=== PATIENT | male | born 1965 | race Caucasian/White ===

== ENCOUNTER → 2018-01-04 14:48 | Outpatient (CLI) | payer MEDICAID, SELFPAY ==
--- NOTE | 2018-01-04 14:53 | XR_ITS ---
EXAM: XR lumbar spine min 4V HISTORY: ITS.REASON: ACUTE RIGHT SIDED LOW BACK PAIN WO SCIATICA ORDERING PHYSICIAN: Gila Ruggiero PATIENT AGE: 52 years COMPARISON: None FINDINGS: Normal alignment. No fracture or dislocation. No lytic or blastic change. There is mild degenerative disc disease at L3-L4 and L4-L5. Small endplate osteophytes are present at L4-L5. There is mild sclerosis of left SI joint inferiorly. IMPRESSION: Mild degenerative changes lumbar spine with no acute finding
== END ==
PROVIDERS: PCP Nurse Practitioner Family; Visit Provider Nurse Practitioner Family
DX: M54.5 Low back pain (principal)
CPT/HCPCS: 72110

== ENCOUNTER 2018-06-29 14:48 | Emergency (ER) | payer MEDICAID, SELFPAY ==
[2018-06-29 14:55] VITALS: BP 154/83; PULSE 88; RESP 18; TEMP 36.6; O2SAT 99; BMI 25.8
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
--- NOTE | 2018-06-29 15:07 | XR_ITS ---
XR hand LT min 3V HISTORY: Left hand pain ITS.REASON: hand injury ORDERING PHYSICIAN: Jose Domingo MD PATIENT AGE: 52 years COMPARISON: Left hand 03/03/2015 FINDINGS: No fracture or dislocation. No lytic or blastic change. There is mild deformity of the head of the fifth metacarpal secondary to old healed fracture. There is mild generalized soft tissue swelling especially in the web space between the thumb and index finger. There are no soft tissue foreign bodies. There is mild narrowing of the first carpometacarpal joint.. There are no foreign bodies. IMPRESSION: Mild generalized soft tissue swelling, mild osteoarthritic changes base of thumb
--- NOTE | 2018-06-29 15:09 | PC.NURSE ---
DAXA ARREDONDO at
[2018-06-29 15:19] VITALS: BP 164/93; PULSE 77; O2SAT 100
[2018-06-29 15:30] VITALS: PULSE 77; O2SAT 100
[2018-06-29 16:23] VITALS: BP 132/66; PULSE 80; RESP 18; TEMP 36.6; O2SAT 100
== END 2018-06-29 16:25 | disposition home or self-care (01) ==
PROVIDERS: Emergency Provider Emergency Medicine
DX: S63.92XA Sprain of unspecified part of left wrist and hand, initial encounter (principal); X50.1XXA Overexertion from prolonged static or awkward postures, initial encounter; Y92.73 Farm field as the place of occurrence of the external cause
CPT/HCPCS: 29125; 73130; 96372; 99284

== ENCOUNTER 2020-02-10 16:22 | Emergency (ER) | payer MEDICAID, SELFPAY ==
[2020-02-10 16:22] VITALS: BP 162/94; PULSE 86; RESP 16; TEMP 36.6; O2SAT 98; BMI 25.0
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
[2020-02-10 17:04] VITALS: BP 131/97; PULSE 78; RESP 78; TEMP 36.6; O2SAT 95
[2020-02-13 13:42] LABS: POC Glucose,Bedside 145 (70-110)
== END 2020-02-10 17:09 ==
PROVIDERS: Emergency Provider Physician Assistant; PCP Nurse Practitioner Family
DX: T40.1X1A Poisoning by heroin, accidental (unintentional), initial encounter (principal); F12.10 Cannabis abuse, uncomplicated; F17.210 Nicotine dependence, cigarettes, uncomplicated
CPT/HCPCS: 82962; 99282

== ENCOUNTER 2020-04-24 09:49 | Emergency (ER) | payer MEDICAID, SELFPAY ==
[2020-04-24 10:00] VITALS: BP 143/76; PULSE 76; RESP 18; TEMP 36.6; O2SAT 98; BMI 25.7
--- NOTE | 2020-04-24 10:01 | XR_ITS ---
PROCEDURE: XR KNEE LT 3V CLINICAL INDICATION: pain COMPARISON: CR KNEE3R KNEE-3 VIEWS-RT from 01/12/2014 CR KNEE3R KNEE-3 VIEWS-RT from 09/26/2014 CR KNEE3R KNEE-3 VIEWS-RT from 03/19/2015 CR KNEE3R KNEE-3 VIEWS-RT from 07/02/2015 FINDINGS: No fracture or dislocation. No lytic or blastic change. There is normal mineralization. Mild to moderate osteoarthritic changes are present at the medial compartment with mild osteoarthritis of the lateral compartment and patellofemoral joint. There is increased density in the suprapatellar region consistent with knee joint effusion. Other findings:None. IMPRESSION: Osteoarthritis with knee joint effusion Dictated by: Murali Diaz MD 04/24/2020 10:29 Murali Diaz MD in [place] 04/24/2020 10:29
--- NOTE | 2020-04-24 10:16 | HMH.EDUTC ---
[facility] [place] Clinical Impression: Knee pain Qualifiers: Chronicity: unspecified Laterality: left Qualified Code(s): M25.562 - Pain in left knee Disposition: Home, Self-Care Condition on Discharge: Good Instructions: How to Use Crutches, How To Perform RICE (Rest, Ice, Compress, Elevate), How to Use a Knee Immobilizer Additional Instructions: *weight bearing as tolerated Use Crutches to ambulate and walk *RICE, Rest the extremity, Ice 15-20 minutes 3-4 times daily, Compress- wear the larry wrap as discussed as much as possible to help reduce swelling and pain, Elevate the extremity when at rest *Larry wrap/Knee immobilizer is for support and help control swelling, use it except in the shower. Be sure that is not to tight but not to loose either *Elevate when resting *Etodolac every 8 hours as needed for pain an inflammation. If need something more can take Tylenol in between doses of Etodolac to help Immediately follow up with your family doctor for new or worsening of symptoms, or no noticeable improvement over the next 3-5 days Prescriptions: Etodolac [Etodolac 200mg Cap*] 200 mg PO Q8H PRN #15 cap PRN Reason: Moderate Pain Transmission Status: Received by [facility] Referrals: Jackson Duque MD [Primary Care Provider] - As needed Elida Caldwell MD [Physician] - 05/01/20 3:00 pm Time of Disposition: 11:07 Medical Decision Making - Talon Inquiry Pt receiving controlled substance: No Talon was queried for this patient: No Vital Signs: 04/24/20 10:00 04/24/20 11:13 Temperature 97.8 F 98.1 F Temperature Source Tympanic Pulse Rate 76 Pulse Rate [Right] 76 Respiratory Rate 18 16 Blood Pressure 132/87 Blood Pressure [Right Arm] 143/76 H Blood Pressure Mean [Right Arm] 98 Blood Pressure Source [Right Arm] Automatic Cuff Blood Pressure Position [Right Arm] Sitting 02 Sat by Pulse Oximetry 98 Oxygen Delivery Method Room Air - Lab Data Lab results reviewed: Yes: I reviewed the patient's lab results. Lab Results 04/24/20 10:23: Uric Acid 4.2 Orders (Tests/Meds): ED MEDICATIONS Discontinued Medications Generic Name Dose Route Start Last Admin Trade Name Freq PRN Reason Stop Dose Admin Ketorolac Tromethamine 60 mg 04/24/20 10:20 04/24/20 10:29 Ketorolac 60mg/2ml Vial IM 04/24/20 10:21 60 mg ONCE ONE Administration - Radiology Data #1 Image(s): Knee Image Reviewed: Yes I reviewed the patient's radiology image Preliminary Findings: No Fracture Seen - Physician Consults Physician Consulted: Javi Time: 11:00 Reason -: Orthopedic Eval/Care Comment/Response: Spoke with Kennedi at Dr Caldwell office and she spoke with Dr Caldwell about xray and findings recommended knee immobilizer continue with crutches and follow up in the office on May 01 at 1500 [facility] [place] - General Stated complaint: left knee won't bend Time Seen by Provider: 04/24/20 10:05 Mode of Arrival: Ambulatory Source of Information: Patient Limitations: No Limitations Description of Symptoms (Recalled from Triage Doc. by RN): left knee pain for three days. states he is unable to bend it and has had previous orthoscopic surgeries. HEENT Symptoms (Recalled from RN notes): No Resp Symptoms (Recalled from RN notes): No Skin Symptoms (Recalled from RN notes): No MS Symptoms (Recalled from RN notes): Yes (left knee pain and stiffness) Functional Status (Recalled from RN notes): na - History of Present Illness Provider Complaint: Patient states that he has had knee problems for years and have several surgerys on his knees States that he woke up and felt burning like pain in his left knee States that he walked to the bathroom and went back to bed States that when he woke up he was still having pain in that left knee and hurt when he would walk on it and painful when he would try to straighten it out denies known injury - Related Data Home Medications Medication Instructions Recorded Queenie
[2020-04-24 10:44] LABS: Uric Acid 4.2 mg/dl (3.5-8.5)
[2020-04-24 11:13] VITALS: BP 132/87; PULSE 76; RESP 16; TEMP 36.7
== END 2020-04-24 11:13 | disposition home or self-care (01) ==
PROVIDERS: Emergency Provider Nurse Practitioner; PCP Family Medicine
DX: M25.562 Pain in left knee (principal); F17.210 Nicotine dependence, cigarettes, uncomplicated
CPT/HCPCS: 73562; 84550; 96372; 99202; G0463

== ENCOUNTER → 2020-05-25 13:09 | Outpatient (CLI) | payer MEDICAID, SELFPAY ==
--- NOTE | 2020-05-25 13:16 | XR_ITS ---
PROCEDURE: XR KNEE LT 3V CLINICAL INDICATION: Left knee pain COMPARISON: CR KNEE3R KNEE-3 VIEWS-RT from 09/26/2014 CR KNEE3R KNEE-3 VIEWS-RT from 03/19/2015 CR KNEE3R KNEE-3 VIEWS-RT from 07/02/2015 CR XR KNEE LT 3V from 04/24/2020 FINDINGS: No fracture or dislocation. No lytic or blastic change. There is normal mineralization. Tricompartmental osteoarthritic changes are present. Small suprapatellar effusion Other findings:None. IMPRESSION: Osteoarthritis with knee joint effusion Dictated by: Murali Diaz MD 05/25/2020 14:11 Murali Diaz MD in [place] 05/25/2020 14:11
--- NOTE | 2020-05-25 14:41 | CA_ITS ---
APPROVED REPORT Left Lower Extremity Venous Study for DVT. Public Relations Director: TRACY Indications Lower Extremity Pain: Left Current Smoker left leg pain x 3 weeks. Patient states pain is in the knee region. Denies trauma. Diabetes, HTN. Risk Factors Current Smoker Vein Imaging CFV (L): compressive, spontaneous, phasic, augmentation FEM (L): compressive, spontaneous, phasic, augmentation POP (L): compressive, spontaneous, phasic, augmentation PTV (L): Compressible GSV (L): compressive, spontaneous, phasic, augmentation Peroneals (L):Compressible GAS (L): Compressible Findings No evidence of DVT or superficial thrombophlebitis in the veins scanned of the left lower extremity. Conclusion No evidence of DVT or superficial thrombophlebitis in the veins scanned of the left lower extremity. Critical Notification Critical Value: No Physician Notified Date: 05/25/2020 Time: 15:09 Physician Name: Dr. Caldwell Report Read Back Electronically signed by : Murali Diaz MD 05/25/2020 15:20:55
== END ==
PROVIDERS: PCP Nurse Practitioner Family; Visit Provider Orthopaedic Surgery
DX: M79.605 Pain in left leg (principal); M25.562 Pain in left knee
CPT/HCPCS: 73562; 93971

== ENCOUNTER → 2020-06-11 09:55 | Outpatient (CLI) | payer MEDICAID, SELFPAY ==
[2020-06-11 09:55] LABS: Blood Urea Nitrogen 16 mg/dl (9-20); Estimated Glomerular Filt Rate 101 ml/min (>60); GFR (African American) 122 ML/MIN (>60)
--- NOTE | 2020-06-11 09:55 | MR_ITS ---
PROCEDURE: MR KNEE LT WO/W CON CLINICAL INDICATION: Left knee pain COMPARISON: No exams were available for comparison TECHNIQUE: Routine multiplanar multi echo sequences are performed without gadolinium enhancement. FINDINGS: Images are degraded due to motion artifact. Extensive signal abnormality of the medial and lateral menisci, may represent complex tears versus postsurgical changes. Extensive signal abnormality noted in the ACL, may represent high-grade sprain. The PCL is intact. The MCL and lateral collateral ligament complex are unremarkable. Minor susceptibility signal loss is noted in the intercondylar notch which may be secondary to prior surgery. There is grade 3 and 4 cartilage loss noted in the medial, lateral and patellofemoral compartments. Postsurgical changes are noted at the lateral patellar retinaculum. Otherwise the extensor mechanism is within normal limits. The popliteal tendon and the posterolateral corner structures are unremarkable. Large joint effusion is noted. Minor bone current edema is noted at the insertion of the posterior cruciate ligament. Incidental note is made of fabella. IMPRESSION: Images are significantly degraded due to motion artifact. Signal abnormality in the medial and lateral menisci which may represent postsurgical changes versus complex tears. Partial tear versus sprain of the ACL. Tricompartmental grade 3 and 4 cartilage loss. Moderate joint effusion. Dictated by: Roxy Fletcher 06/11/2020 16:07 Roxy Fletcher in [place] 06/11/2020 16:07
== END ==
PROVIDERS: PCP Nurse Practitioner Family; Visit Provider Orthopaedic Surgery
DX: M25.562 Pain in left knee (principal); E11.9 Type 2 diabetes mellitus without complications
CPT/HCPCS: 36415; 73723; 82565; 84520; A9576

== ENCOUNTER 2020-09-14 13:25 | Emergency (ER) | payer MEDICAID, SELFPAY ==
[2020-09-14] VITALS (10 sets, daily range): BP systolic 113–133; BP diastolic 69–89; PULSE 57–85; RESP 16–18; TEMP 36.8–36.9; O2SAT 97–100; BMI 24.6
--- NOTE | 2020-09-14 13:37 | PC.NURSE ---
notified ER MD of presenting s/s. ER MD states not to stroke alert, pt states she wants to assess pt first.
--- NOTE | 2020-09-14 13:42 | PC.NURSE ---
DAXA ARREDONDO at
--- NOTE | 2020-09-14 13:42 | PC.NURSE ---
notified rad of CT head order
--- NOTE | 2020-09-14 13:47 | CT_ITS ---
Procedure: CT ANGIO HEAD CLINICAL HISTORY: please perform a CTV for double vision Double vision COMPARISON: CT CT HEAD/BRAIN WO CON from 09/14/2020 TECHNIQUE: IV Contrast: 100ml Isovue 370 Axial images obtained with sagittal and coronal reformats. All CT scans at the facility use one or more dose reduction, viz: automated exposure control, ma/kV adjustment per patient size (including targeted exams where dose is matched to indication, i.e. head), or iterative reconstruction technique. FINDINGS: CTA of the brain with delayed images performed There is a small aneurysm projecting off of the posterior at the lateral aspect of the cavernous portion of the right internal carotid artery measuring approximately 2 mm. Persistent origin noted of the left posterior cerebral artery. No intracranial occlusive process or arteriovenous malformation. No evidence dural thrombosis. No enhancing lesions are evident. Artifact is noted from the patient's earring on the left. There is some minimal calcific plaque of the internal carotids within the cavernous sinus on both sides IMPRESSION: 1. No evidence of dural sinus thrombosis. 2. 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 Dictated by: Murali Diaz MD 09/14/2020 14:50 Murali Diaz MD in [place] 09/14/2020 14:50
--- NOTE | 2020-09-14 13:50 | HMH.EDGENADL ---
ED Disposition Clinical Impression: Vertical diplopia Disposition: Xfer Short-Term Hosp Condition on Discharge: Good Referrals: Gila Ruggiero APRN [Primary Care Provider] - - Critical Care Critical Care Time: No Attestation: On 09/14/20, the high probability of a clinically significant, sudden or life threatening deterioration of the following system(s) required my full and direct attention, intervention and personal management. The time I documented below is in addition to time spent performing reported procedures but includes the following listed in this critical care notation. Medical Decision Making - Medical Records Medical records reviewed: Yes: I reviewed the patient's medical records. - Talon Inquiry Pt receiving controlled substance: No Vital Signs: 09/14/20 13:34 09/14/20 13:36 09/14/20 13:50 Temperature 98.4 F Temperature Source Oral Pulse Rate 85 75 Pulse Rate [Right Radial] 81 Respiratory Rate 18 Blood Pressure 132/86 116/84 Blood Pressure [Right Arm] 132/86 Blood Pressure Mean 103 99 Blood Pressure Mean [Right Arm] 101 Blood Pressure Source [Right Arm] Automatic Cuff Blood Pressure Position [Right Arm] Sitting 02 Sat by Pulse Oximetry 99 98 99 Oxygen Delivery Method Room Air 09/14/20 14:47 Temperature Temperature Source Pulse Rate 64 Pulse Rate [Right Radial] Respiratory Rate Blood Pressure 128/80 Blood Pressure [Right Arm] Blood Pressure Mean 97 Blood Pressure Mean [Right Arm] Blood Pressure Source [Right Arm] Blood Pressure Position [Right Arm] 02 Sat by Pulse Oximetry 99 Oxygen Delivery Method - Lab Data Lab results reviewed: Yes: I reviewed the patient's lab results. Lab Results 09/14/20 13:55: WBC 7.6, RBC 5.64, Hgb 15.8, Hct 47.4, MCV 83.9, MCH 27.9, MCHC 33.3, RDW 13.1, Plt Count 143, MPV 9.3, Neut % (Auto) 59.7, Lymph % (Auto) 32.5, Hardy % (Auto) 5.7, Eos % (Auto) 1.6, Baso % (Auto) 0.4, Neut # (Auto) 4.5, Lymph # (Auto) 2.5, Hardy # (Auto) 0.4, Eos # (Auto) 0.1, Baso # (Auto) 0.0 09/14/20 13:55: Sodium 143, Potassium 3.5, Chloride 104, Carbon Dioxide 28, Anion Gap 14.5, BUN 14, Creatinine 0.70, Estimated Creat Clear 145, Estimated GFR 118, Est GFR ( Amer) 142, Glucose 125 H, Calcium 9.8, Total Bilirubin 0.9, AST 30, ALT 18, Alkaline Phosphatase 126, Total Protein 8.8 H, Albumin 4.9, Globulin 3.9 H, Albumin/Globulin Ratio 1.3 Result diagrams: 09/14/20 13:55 09/14/20 13:55 Orders (Tests/Meds): ED MEDICATIONS Discontinued Medications Generic Name Dose Route Start Last Admin Trade Name Freq PRN Reason Stop Dose Admin Iopamidol 100 ml 09/14/20 14:15 09/14/20 14:16 Iopamidol-370 (76%);100ml Bottle IV 09/14/20 14:16 100 ml ONCE ONE Administration Sodium Chloride 50 ml 09/14/20 14:15 09/14/20 14:15 0.9 % Sodium Chloride 50 Ml Vial IV 09/14/20 14:16 50 ml ONCE ONE Administration Sodium Chloride 10 ml 09/14/20 14:15 09/14/20 14:16 Sodium Chloride 0.9% 10ml Syr (Rad Only) IV 09/14/20 14:16 10 ml ONCE ONE Administration ORDERS Category Date Time Status Blood Culture Stat Micro 09/14/20 13:55 Received Medical Decision Narrative: Presents with isolated double vision. No other symptoms to suggest stroke. He is out of the window so was not stroke alerted. Will perform CT head to evaluate for stroke and also CTV to evaluate for central venous sinus thrombosis. No evidence of orbital or periorbital cellulitis, eye trauma, anterior chamber and conjunctive are clear. Labs unremarkable. CT head with likely incidental 2 mm internal carotid aneurysm. Persistent concern for stroke, case was discussed with Dr. Nancy WEI who accepts the patient for further stroke evaluation. General Adult HPI - General Stated complaint: double vision Time Seen by Provider: 09/14/20 13:45 - History of Present Illness HPI narrative: 5-year-old male with history of active IV drug abuse, last us
--- NOTE | 2020-09-14 13:54 | PC.NURSE ---
Pt to rad
--- NOTE | 2020-09-14 14:02 | CT_ITS ---
PROCEDURE: CT HEAD/BRAIN WO CON CLINICAL INDICATION: double vision COMPARISON: CT HEADWO CT head/brain wo con from 06/16/2018 TECHNIQUE: Axial images obtained. All CT scans at the facility use one or more dose reduction, viz: automated exposure control, ma/kV adjustment per patient size (including targeted exams where dose is matched to indication, i.e. head), or iterative reconstruction technique. FINDINGS: No midline shift, mass effect, intracranial hemorrhage, hydrocephalus, or extra-axial fluid collection is evident. The calvarium has an unremarkable appearance. No mastoid effusion. No sinus air-fluid level. IMPRESSION: No acute intracranial finding Dictated by: Murali Diaz MD 09/14/2020 14:38 Murali Diaz MD in [place] 09/14/2020 14:38
[2020-09-14 14:11] LABS: Basophils % 0.4 % (0.1-2.0); Eosinophils # 0.1 K/mm3 (0.0-0.4); Eosinophils % 1.6 % (0.1-12.0); Hematocrit 47.4 % (42.0-52.0); Hemoglobin 15.8 g/dL (14.1-18.0); Lymphocytes # 2.5 K/mm3 (0.7-4.5); Lymphocytes % 32.5 % (10-50); Mean Corpuscular HGB Conc 33.3 g/dL (31.8-35.4); Mean Corpuscular Hemoglobin 27.9 pg (27.0-31.2); Mean Corpuscular Volume 83.9 fl (80-94); Mean Platelet Volume 9.3 fl (7.4-10.4); Monocytes # 0.4 K/mm3 (0.1-1.0); Monocytes % 5.7 % (1.7-9.3); Neutrophils # 4.5 K/mm3 (1.8-7.8); Neutrophils % 59.7 % (37.0-80.0); Platelet Count 143 K/mm3 (142-424); Red Blood Count 5.64 M/mm3 (4.60-6.20); Red Cell Distribution Width 13.1 % (11.5-17.5); White Blood Count 7.6 K/mm3 (4.8-10.8)
[2020-09-14 14:20] LABS: Chloride 104 mmol/L (98-107); Potassium 3.5 mmoL/L (3.5-5.1); Sodium 143 mmol/L (136-145)
[2020-09-14 14:23] LABS: Alanine Aminotransferase 18 U/L (12-78); Albumin Level 4.9 g/dl (3.5-5.0); Albumin/Globulin Ratio 1.3 (1.1-1.8); Alkaline Phosphatase 126 U/L (38-126); Anion Gap 14.5 mEq/L (5-15); Aspartate Amino Transferase 30 U/L (17-59); Bilirubin,Total 0.9 mg/dl (0.2-1.3); Blood Urea Nitrogen 14 mg/dl (9-20); Carbon Dioxide 28 mmol/L (22.0-30.0); Creatinine Clearance Estimated 145 mL/min (50-200); Estimated Glomerular Filt Rate 118 ml/min (>60); GFR (African American) 142 ML/MIN (>60); Globulin 3.9 g/dL (1.3-3.2); Total Protein,Serum 8.8 g/dl (6.3-8.2)
[2020-09-14 14:24] LABS: Calcium 9.8 mg/dl (8.4-10.2); Glucose 125 mg/dl (74-100)
--- NOTE | 2020-09-14 14:48 | PC.NURSE ---
PATIENT HAS 20/40 VISION IN BOTH EYES. PATIENT UNSURE IF THAT IS HIS NORMAL VISION. PT REPORTS HE WEARS NON-PRESCRIPTION GLASSES TO READ
--- NOTE | 2020-09-14 15:17 | PC.NURSE ---
contacting [facility] per er request
--- NOTE | 2020-09-14 15:18 | PC.NURSE ---
DAXA ARREDONDO speaking Dr. Erwin at with stroke team
--- NOTE | 2020-09-14 15:36 | PC.NURSE ---
pt accepted to ER per Dr. Ornelas
--- NOTE | 2020-09-14 15:52 | PC.NURSE ---
notified [facility] of transport to ER, pt can by [facility] transport. [facility] staff states they do not have a transport truck today. States they will transport pt after the als run they were just notified of is complete.
--- NOTE | 2020-09-14 16:51 | PC.NURSE ---
ER PHYSICIAN APPROVED PATIENT TO EAT. DIETARY CALLED AND ORDERED A FOOD TRAY AT THIS TIME
--- NOTE | 2020-09-14 17:32 | PC.NURSE ---
GAVE REPORT TO REBECCA ARCINIEGASERVOMECHANISM DESIGNER NURSE AT THIS TIME
== END 2020-09-14 18:40 | disposition short-term general hospital (02) ==
PROVIDERS: Emergency Provider Emergency Medicine; PCP Nurse Practitioner Family
DX: H53.2 Diplopia (principal); F17.210 Nicotine dependence, cigarettes, uncomplicated; R73.9 Hyperglycemia, unspecified
CPT/HCPCS: 70450; 70496; 80053; 85025; 87040; 99283; 99284; Q9967

== ENCOUNTER 2020-10-21 17:41 | Emergency (ER) | payer MEDICAID, SELFPAY ==
[2020-10-21 17:45] VITALS: BP 119/99; PULSE 82; RESP 18; TEMP 36.7; O2SAT 97; BMI 25.7
--- NOTE | 2020-10-21 17:54 | HMH.EDGENADL ---
ED Disposition Clinical Impression: Knee contusion Disposition: Home, Self-Care Condition on Discharge: Good Additional Instructions: Keep knee immobilizer for 7 days. Follow-up with your primary care physician. Follow-up with the orthopedic clinic. Avoid prolonged walking and standing. Prescriptions: Etodolac [Lodine 400mg Tab] 400 mg PO TID 10 Days #30 tab Transmission Status: Pending to [facility] Referrals: Gila Ruggiero APRN [Primary Care Provider] - - Critical Care Critical Care Time: No Attestation: On 10/21/20, the high probability of a clinically significant, sudden or life threatening deterioration of the following system(s) required my full and direct attention, intervention and personal management. The time I documented below is in addition to time spent performing reported procedures but includes the following listed in this critical care notation. Medical Decision Making - Medical Records MR Comment: Left knee shows signs of degenerative joint disease mild effusion. No fracture or dislocation - Talon Inquiry Pt receiving controlled substance: No Talon was queried for this patient: No Vital Signs: 10/21/20 17:45 Temperature 98.0 F Temperature Source Oral Pulse Rate [Right] 82 Respiratory Rate 18 Blood Pressure [Right Arm] 119/99 H Blood Pressure Mean [Right Arm] 105 02 Sat by Pulse Oximetry 97 Oxygen Delivery Method Room Air Orders (Tests/Meds): ED MEDICATIONS Discontinued Medications Generic Name Dose Route Start Last Admin Trade Name Duyq PRN Reason Stop Dose Admin Ketorolac Tromethamine 30 mg 10/21/20 17:59 10/21/20 18:05 Ketorolac 30mg/Ml Vial IM 10/21/20 18:00 30 mg ONCE ONE Administration ORDERS Category Date Time Status XR knee LT 3V Stat Exams 10/21/20 17:59 Taken General Adult HPI - General Stated complaint: AO [id number], 1700 fell injured left knee Time Seen by Provider: 10/21/20 17:54 Mode of Arrival: Ambulatory Source of Information: Patient Limitations: No Limitations - History of Present Illness HPI narrative: Patient is 55-year old male with a long history of pain in the left knee and on schedule to have total knee replacement. Patient has a chronic pain in both knees. He fell today several steps and injured his left knee. No other injuries. No bruises noted. He has a chronic effusion of the left knee. He was seen by the orthopedic doctor and he was scheduled to have surgery for total knee replacement. He walked to the emergency room with pain in the left knee after this fall. Onset (ago): hour(s) Location: lower extremity Radiation: non-radiation Severity scale (1-10): 3 Quality: sharp Consistency: constant Relieving factors: immobilization Exacerbating factors: movement Associated symptoms: denies other symptoms - Related Data Home Medications Medication Instructions Recorded Confirmed cloNIDine HCL [cloNIDine 0.1mg 0.1 mg PO HS 10/16/17 06/22/20 Tablet] hydroCHLOROthiazide [HCTZ 25mg 25 mg PO BID 10/16/17 06/22/20 tab] Previous Rx's Medication Instructions Recorded Etodolac [Etodolac 200mg Cap*] 200 mg PO Q8H PRN #15 cap 04/24/20 Etodolac [Lodine 400mg Tab] 400 mg PO TID 10 Days #30 tab 10/21/20 Allergies Allergy/AdvReac Type Severity Reaction Status Date / Time No Known Allergies Allergy Verified 06/22/20 09:51 [facility] History - Hepatitis A Screen Attestation statement:: This patient has been screened for Hepatitis A risk factors. Medical History: Denies:: Cancer, Diabetes Mellitus Type 1, Diabetes Mellitus Type 2, MRSA Amputation: No - Social History Smoking Status: Current every day smoker Tobacco Type: cigarettes # Packs/Day (cigarettes): 1 Alcohol Intake: never Alcohol Intake Frequency:: other Substance Use Type: heroin Occupational Status: employed ROS Obtained: Yes All systems reviewed & no additional complaints - Constitutional Constitutional:
[2020-10-21 17:58] VITALS: BMI 25.7
--- NOTE | 2020-10-21 17:59 | XR_ITS ---
PROCEDURE INFORMATION: Exam: XR Left Knee Exam date and time: 10/21/2020 5:59 PM Age: 55 years old Clinical indication: Injury or trauma; Blunt trauma; Injury date: 10/21/2020; Patient HX: Fall, left knee pain; Additional info: Left knee injury TECHNIQUE: Imaging protocol: XR Left knee. Views: 3 views. COMPARISON: MR KNEE LT WO/W CON 06/11/2020 10:22 AM FINDINGS: Bones/joints: Tricompartmental joint space narrowing and osteophyte formation. No acute fracture or dislocation. Soft tissues: Normal. IMPRESSION: No acute findings.
[2020-10-21 19:00] VITALS: BP 112/55; PULSE 85; RESP 18; TEMP 36.8; O2SAT 99
== END 2020-10-21 19:05 | disposition home or self-care (01) ==
PROVIDERS: Emergency Provider Internal Medicine; PCP Nurse Practitioner Family
DX: S80.02XA Contusion of left knee, initial encounter (principal); W10.9XXA Fall (on) (from) unspecified stairs and steps, initial encounter; Y92.89 Other specified places as the place of occurrence of the external cause; F17.210 Nicotine dependence, cigarettes, uncomplicated
CPT/HCPCS: 73562; 99282

== ENCOUNTER → 2021-06-21 16:03 | Outpatient (CLI) | payer OTHER, SELFPAY ==
[2021-06-21 17:26] LABS: Free T4 (Free Thyroxine) 3.09 ng/dl (0.78-2.19)
[2021-06-21 17:40] LABS: Thyroid Stimulating Hormone 0.04 uIU/mL (0.465-4.68)
[2021-06-23 08:38] LABS: Thyroid Peroxidase Antibodies 15 IU/mL (0-34); Triiodothyronine (T3) Free 9.1 pg/mL (2.0-4.4)
[2021-06-23 22:08] LABS: Thyroglobulin Level <1.0 IU/mL (0.0-0.9)
== END ==
PROVIDERS: Visit Provider Nurse Practitioner Family
DX: E05.00 Thyrotoxicosis with diffuse goiter without thyrotoxic crisis or storm (principal)
CPT/HCPCS: 36415; 84439; 84443; 84481; 86376; 86800

== ENCOUNTER → 2021-06-30 08:48 | Outpatient (CLI) | payer OTHER, SELFPAY ==
[2021-06-30 09:47] LABS: Basophils # 0.1 K/mm3 (0-0.2); Basophils % 0.9 % (0.1-2.0); Eosinophils # 0.2 K/mm3 (0.0-0.4); Eosinophils % 2.7 % (0.1-12.0); Hematocrit 44.6 % (42.0-52.0); Hemoglobin 14.2 g/dL (14.1-18.0); Lymphocytes # 1.5 K/mm3 (0.7-4.5); Lymphocytes % 25.9 % (10-50); Mean Corpuscular HGB Conc 31.9 g/dL (31.8-35.4); Mean Corpuscular Hemoglobin 27.6 pg (27.0-31.2); Mean Corpuscular Volume 86.4 fl (80-94); Monocytes # 0.4 K/mm3 (0.1-1.0); Monocytes % 6.2 % (1.7-9.3); Neutrophils # 3.7 K/mm3 (1.8-7.8); Neutrophils % 64.2 % (37.0-80.0); Platelet Count 182 K/mm3 (142-424); Red Blood Count 5.17 M/mm3 (4.60-6.20); White Blood Count 5.8 K/mm3 (4.8-10.8)
[2021-06-30 10:09] LABS: Chloride 108 mmol/L (98-107); Potassium 4.3 mmoL/L (3.5-5.1); Sodium 141 mmol/L (136-145)
[2021-06-30 10:11] LABS: Alanine Aminotransferase 12 U/L (12-78); Aspartate Amino Transferase 24 U/L (17-59); Blood Urea Nitrogen 13 mg/dl (9-20); Estimated Glomerular Filt Rate 118 ml/min (>60); GFR (African American) 142 ML/MIN (>60)
[2021-06-30 10:12] LABS: Albumin Level 4.3 g/dl (3.5-5.0); Albumin/Globulin Ratio 1.4 (1.1-1.8); Alkaline Phosphatase 134 U/L (38-126); Anion Gap 10.3 mEq/L (5-15); Bilirubin,Total 0.5 mg/dl (0.2-1.3); Calcium 9.4 mg/dl (8.4-10.2); Carbon Dioxide 27 mmol/L (22.0-30.0); Globulin 3.1 g/dL (1.3-3.2); Glucose 107 mg/dl (74-100); Total Protein,Serum 7.4 g/dl (6.3-8.2)
[2021-06-30 10:21] LABS: Erythrocyte Sedimentation Rate 11 mm/hr (0-20)
== END ==
PROVIDERS: Visit Provider Nurse Practitioner Family
DX: I10 Essential (primary) hypertension (principal); H53.2 Diplopia; H57.12 Ocular pain, left eye
CPT/HCPCS: 36415; 80053; 85025; 85651

== ENCOUNTER → 2021-07-09 10:18 | Outpatient (CLI) | payer OTHER, SELFPAY ==
--- NOTE | 2021-07-09 10:24 | MR_ITS ---
FINAL REPORT CLINICAL HISTORY: DOUBLE VISION, LT EYE PAIN FINDINGS: Multiple projection images of the brain arterial vasculature were obtained without contrast. The raw data images were also reviewed. No segmental stenosis is identified. There is no evidence of major branch occlusion. No aneurysm or vascular malformation is identified. There is a patent posterior communicating artery on the left. IMPRESSION: Unremarkable MR angiogram of the head. Reviewed, Interpreted and Dictated by Jimmy Rosado MD Transcribed by Gracia Pritchett Authenticated by Jimmy Rosado MD on 07/09/2021 03:18:35 PM [facility]
== END ==
PROVIDERS: PCP Nurse Practitioner Family; Visit Provider Nurse Practitioner Family
DX: H53.2 Diplopia (principal); H57.12 Ocular pain, left eye
CPT/HCPCS: 70544

== ENCOUNTER 2021-09-13 00:02 | Emergency (ER) | payer OTHER, SELFPAY ==
[2021-09-13] VITALS: BP 192/115; PULSE 86; RESP 18; TEMP 36.5; O2SAT 99; BMI 23.7
[2021-09-13 00:05] VITALS: BMI 23.7
--- NOTE | 2021-09-13 00:06 | XR_ITS ---
PROCEDURE INFORMATION: Exam: XR Chest Exam date and time: 09/13/2021 12:59 AM Age: 56 years old Clinical indication: Shortness of breath and other: Overdose TECHNIQUE: Imaging protocol: Radiologic exam of the chest. Views: 1 view. COMPARISON: CR CXR2V XR chest 2V 10/16/2017 8:43 AM FINDINGS: Lungs: Unremarkable. No consolidation. Pleural spaces: Unremarkable. No pleural effusion. No pneumothorax. Heart/Mediastinum: Unremarkable. No cardiomegaly. Bones/joints: Unremarkable. IMPRESSION: No acute findings.
[2021-09-13 00:30] VITALS: BP 158/99; PULSE 84; O2SAT 94
[2021-09-13 00:31] LABS: Basophils # 0.1 K/mm3 (0-0.2); Basophils % 1.6 % (0.1-2.0); Eosinophils # 0.2 K/mm3 (0.0-0.4); Eosinophils % 4.1 % (0.1-12.0); Hematocrit 36.2 % (42.0-52.0); Hemoglobin 11.5 g/dL (14.1-18.0); Lymphocytes % 33.5 % (10-50); Mean Corpuscular HGB Conc 31.7 g/dL (31.8-35.4); Mean Corpuscular Hemoglobin 27.7 pg (27.0-31.2); Mean Corpuscular Volume 87.5 fl (80-94); Mean Platelet Volume 10.4 fl (7.4-10.4); Monocytes # 0.5 K/mm3 (0.1-1.0); Monocytes % 7.8 % (1.7-9.3); Neutrophils # 3.2 K/mm3 (1.8-7.8); Neutrophils % 53.1 % (37.0-80.0); Platelet Count 151 K/mm3 (142-424); Red Blood Count 4.14 M/mm3 (4.60-6.20); Red Cell Distribution Width 16.1 % (11.5-17.5); White Blood Count 5.9 K/mm3 (4.8-10.8)
[2021-09-13 00:33] LABS: Chloride 105 mmol/L (98-107); Potassium 3.7 mmoL/L (3.5-5.1); Sodium 139 mmol/L (136-145)
[2021-09-13 00:35] LABS: Alanine Aminotransferase 25 U/L (12-78); Alkaline Phosphatase 168 U/L (38-126); Aspartate Amino Transferase 41 U/L (17-59); Bilirubin,Total 0.6 mg/dl (0.2-1.3); Blood Urea Nitrogen 12 mg/dl (9-20); Creatinine Clearance Estimated 107 mL/min (50-200); Estimated Glomerular Filt Rate 88 ml/min (>60); GFR (African American) 106 ML/MIN (>60)
[2021-09-13 00:36] LABS: Albumin/Globulin Ratio 1.3 (1.1-1.8); Anion Gap 10.7 mEq/L (5-15); Calcium 8.8 mg/dl (8.4-10.2); Carbon Dioxide 27 mmol/L (22.0-30.0); Globulin 3.1 g/dL (1.3-3.2); Glucose 114 mg/dl (74-100); Total Protein,Serum 7.1 g/dl (6.3-8.2)
--- NOTE | 2021-09-13 00:40 | ECG_ITS ---
APPROVED REPORT Exam: Resting ECG HR:84 bpm ECG Measurements Heart Rate 84 AXES NM 166 P 73 QRSd 88 QRS 74 QT 369 T 72 QTc 410 Conclusion SINUS RHYTHM MINIMAL VOLTAGE CRITERIA FOR LVH, CONSIDER NORMAL VARIANT [MEETS CRITERIA IN ONE OF: R(aVL), S(V1), R(V5), R(V5/V6)+S(V1)] BORDERLINE ECG UNCONFIRMED REPORT Electronically signed by : Jackson Ceja MD 09/13/2021 21:28:16
[2021-09-13 00:42] LABS: Acetaminophen < 10 ug/ml (10-30); Ethyl Alcohol < 10 mg/dl (0-10); Salicylate < 1.0 mg/dL (2.0-20.0)
[2021-09-13 00:48] LABS: Troponin I < 0.01 ng/ml (0.00-0.034)
[2021-09-13 00:54] LABS: Microscopic, Urine URINE MICROSCOPIC (MICROSCOPIC)
[2021-09-13 00:55] LABS: Appearance,Urine CLEAR (Clear); Bilirubin,Urine Negative (Negative); Blood, Urine Negative (Negative); Color,Urine YELLOW (Yellow); Glucose,Urine (UA) Negative (Negative); Ketones,Urine Negative (Negative); Leukocyte Esterase,Urine Negative (Negative); Nitrate,Urine Negative (Negative); Protein,Urine TRACE (Negative); Specific Gravity, Urine 1.025 (1.005-1.030); Urobilinogen,Urine 0.2 EU/dl (0.2)
--- NOTE | 2021-09-13 00:55 | HMH.EDOD ---
ED Disposition Clinical Impression: Poisoning by opiate or related narcotic, IVDU (intravenous drug user), Cocaine abuse, Amphetamine abuse Disposition: Home, Self-Care Condition on Discharge: Good Instructions: DI for Drug Overdose in Adults Additional Instructions: please call pcp for follow up Referrals: Provider,Hortensia, [Primary Care Provider] - - Critical Care Critical Care Time: No Attestation: On 09/13/21, the high probability of a clinically significant, sudden or life threatening deterioration of the following system(s) required my full and direct attention, intervention and personal management. The time I documented below is in addition to time spent performing reported procedures but includes the following listed in this critical care notation. Medical Decision Making - Medical Records Medical records reviewed: Yes: I reviewed the patient's medical records. - Talon Inquiry Pt receiving controlled substance: No Vital Signs: 09/13/21 00:00 09/13/21 00:30 Temperature 97.7 F Temperature Source Oral Pulse Rate 84 Pulse Rate [Left Radial] 86 Respiratory Rate 18 Blood Pressure 158/99 H Blood Pressure [Right Arm] 192/115 H Blood Pressure Mean [Right Arm] 140 Blood Pressure Source [Right Arm] Automatic Cuff 02 Sat by Pulse Oximetry 99 94 L Oxygen Delivery Method Room Air Room Air - Lab Data Lab results reviewed: Yes: I reviewed the patient's lab results. Lab Results 09/13/21 00:20: WBC 5.9, RBC 4.14 L, Hgb 11.5 L, Hct 36.2 L, MCV 87.5, MCH 27.7, MCHC 31.7 L, RDW 16.1, Plt Count 151, MPV 10.4, Neut % (Auto) 53.1, Lymph % (Auto) 33.5, Sabine % (Auto) 7.8, Eos % (Auto) 4.1, Baso % (Auto) 1.6, Neut # (Auto) 3.2, Lymph # (Auto) 2.0, Sabine # (Auto) 0.5, Eos # (Auto) 0.2, Baso # (Auto) 0.1 09/13/21 00:20: Sodium 139, Potassium 3.7, Chloride 105, Carbon Dioxide 27, Anion Gap 10.7, BUN 12, Creatinine 0.90, Estimated Creat Clear 107, Estimated GFR 88, Est GFR ( Amer) 106, Glucose 114 H, Calcium 8.8, Total Bilirubin 0.6, AST 41, ALT 25, Alkaline Phosphatase 168 H, Troponin I < 0.01, Total Protein 7.1, Albumin 4.0, Globulin 3.1, Albumin/Globulin Ratio 1.3, Salicylates < 1.0 L, Acetaminophen < 10 L 09/13/21 00:20: Plasma/Serum Alcohol < 10 09/13/21 00:49: Urine Color Yellow, Urine Appearance Clear, Urine pH 6.0, Ur Specific Shoup 1.025, Urine Protein Trace, Urine Glucose (UA) Negative, Urine Ketones Negative, Urine Blood Negative, Urine Nitrate Negative, Urine Bilirubin Negative, Urine Urobilinogen 0.2, Ur Leukocyte Esterase Negative, Urine WBC 10-20, Ur Squamous Epith Cells Occasional 09/13/21 00:49: Urine Opiates Screen Negative, Urine Methadone Screen Negative, Ur Barbituates Screen Negative, Ur Phencyclidine Scrn Negative, Ur Amphetamines Screen Positive H, U Benzodiazepines Scrn Negative, Urine Cocaine Screen Positive H, U Marijuana (THC) Screen Positive H Result diagrams: 09/13/21 00:20 09/13/21 00:20 Orders (Tests/Meds): ORDERS Category Date Time Status Troponin I Q3H Lab 09/13/21 03:15 Ordered Troponin I Q3H Lab 09/13/21 06:15 Ordered Urine Culture Stat Micro 09/13/21 00:49 Received - Radiology Data #1 Image(s): Chest Image Reviewed: Yes I have reviewed radiologist's interpretation Preliminary Findings: Normal/NAD - ECG Data Tracing #1 Normal Sinus Rhythm: Yes Ischemic changes: non-specific ST-T wave changes Medical Decision Narrative: has ivdu and at baseline - will need to consider rehab - stable exam and labs Overdose HPI - General Chief Complaint: Overdose Stated Complaint: overdose Time Seen by Provider: 09/13/21 00:15 Mode of Arrival: EMS Source of Information: Patient, Relative, EMS, Medical Record Limitations: No Limitations Description of Symptoms (Recalled from ER Triage Doc. by RN): PT UNRESPONSIVE AT HOME WITH SNORING RESPIRATIONS. EMS REPORTS GIVING NARCAN 1 MG PRIOR TO ARRIVAL. PT REPORTS HE USED IV HEROINE AND MARIJUANA. PT REPOR
[2021-09-13 00:59] LABS: Squamous Epithelial Cell,Urine Occasional #/hpf (0-5)
--- NOTE | 2021-09-13 01:01 | PC.NURSE ---
RAD at BS
[2021-09-13 01:06] LABS: Barbiturates Screen,Urine Negative ng/ml (<200); Benzodiazepines Screen,Urine Negative ng/ml (<200)
[2021-09-13 01:07] LABS: Cannabinoid Screen,Urine Positive ng/ml (<50)
[2021-09-13 01:08] LABS: Cocaine Screen,Urine Positive ng/ml (<300)
[2021-09-13 01:09] LABS: Methadone Screen,Urine Negative ng/ml (<300); Opiate Screen,Urine Negative ng/ml (<300)
[2021-09-13 01:10] LABS: Phencyclidine Screen,Urine Negative ng/ml (<25)
[2021-09-13 01:20] LABS: Amphetamine/Metha Screen,Urine Positive ng/ml (<1000)
[2021-09-13 01:29] VITALS: BP 165/106; PULSE 82; RESP 22; TEMP 36.8; O2SAT 99
== END 2021-09-13 01:35 | disposition home or self-care (01) ==
PROVIDERS: Emergency Provider Emergency Medicine; PCP Nurse Practitioner Family
DX: T40.1X1A Poisoning by heroin, accidental (unintentional), initial encounter (principal); F15.129 Other stimulant abuse with intoxication, unspecified; F14.129 Cocaine abuse with intoxication, unspecified; F12.129 Cannabis abuse with intoxication, unspecified
CPT/HCPCS: 71045; 80053; 80305; 80329; 81001; 84484; 85025; 87086; 93005; 99283

== ENCOUNTER 2022-01-10 10:00 | Emergency (ER) | payer OTHER, SELFPAY ==
[2022-01-10 11:49] VITALS: BP 0/0; PULSE 0; RESP 0; TEMP -17.7; TEMP 0
== END 2022-01-10 11:50 | disposition left against medical advice (07) ==
LOC: UTC 10:05
PROVIDERS: Emergency Provider Nurse Practitioner Family; PCP Nurse Practitioner Family
DX: J02.9 Acute pharyngitis, unspecified (principal); H57.11 Ocular pain, right eye; M79.10 Myalgia, unspecified site; F17.210 Nicotine dependence, cigarettes, uncomplicated; Z53.21 Procedure and treatment not carried out due to patient leaving prior to being seen by health care provider

== ENCOUNTER 2022-02-09 14:05 | Emergency (ER) | payer OTHER, SELFPAY ==
--- NOTE | 2022-02-09 14:06 | XR_ITS ---
FINAL REPORT CLINICAL HISTORY: PT FELL X DAYS AGO, HX MULITPLE FX AND SX FINDINGS: RIGHT KNEE 3 views of the right knee were obtained. There is a marked healed fracture deformity of the proximal tibial metaphysis and metadiaphysis. Visualized joint spaces are normally aligned. There is mild narrowing of the medial and lateral compartments. There is a well corticated ossific density at the lateral joint margin measuring 1.6 cm. This is probably related to sequela of prior fracture. There is a small to moderate joint effusion. IMPRESSION: Old healed fracture deformity with no acute bony abnormality. Small to moderate joint effusion. Reviewed, Interpreted and Dictated by Jimmy Rosado MD Transcribed by Reyna Campos Authenticated and [facility]
[2022-02-09 15:10] VITALS: BP 140/87; PULSE 74; RESP 18; TEMP 36.6; O2SAT 96; BMI 25.0
--- NOTE | 2022-02-09 15:12 | EXP.UTC ---
Discharge Plan Disposition Patient Disposition: Home, Self-Care Condition: Good Prescriptions Prescriptions: No Action clonidine HCl 0.1 MG tablet 0.1 mg PO HS hydrochlorothiazide 25 MG tablet 25 mg PO BID Referrals Follow up/Referrals: Noel Cazares DO [Staff Physician] - See instructions (Call office for appointment) Gila Ruggiero APRN [Primary Care Provider] - See instructions Activity Restrictions/Add. Instructions Additional Instructions/Restrictions: *No weight bearing *RICE, Rest the extremity, Ice 15-20 minutes 3-4 times daily, Compress- wear the juan wrap as discussed as much as possible to help reduce swelling and pain, Elevate the extremity when at rest *Knee immobilizer is for support and help control swelling, use it except in the shower. Be sure that is not to tight but not to loose either *Elevate when resting? *Ibuprofen 600-800mg every 6-8 hours as needed for pain an inflammation. If need something more can take Tylenol in between doses of Ibuprofen to help Immediately follow up with your family doctor for new or worsening of symptoms, or no noticeable improvement over the next 3-5 days Clinical Impressions Clinical Impression: Knee sprain Qualifiers: Encounter type: initial encounter Involved ligament of knee: unspecified ligament Laterality: right Qualified Code(s): S83.91XA - Sprain of unspecified site of right knee, initial encounter Stand Alone Forms Stand Alone Forms: Work/School Release Instructions Patient Instructions: How to Use Crutches, How To Perform RICE (Rest, Ice, Compress, Elevate), How to Use a Knee Immobilizer Discharge ED Provider: Sujey Andrade [facility] [place] HPI General Stated complaint: [id number]@[email or web address]@1300 pain in Rt knee Time Seen by Provider: 02/09/22 15:12 History of Present Illness Provider Complaint: Patient states that sometimes his knee gives out from injury a couple years ago States that he was walking down the steps and his right knee give out on him and he fell and landed on the knee State that ever since he has been having pain in his knee and wanted to get it looked at Related Data Home Medications Medication Instructions Recorded Confirmed clonidine HCl 0.1 mg tablet 0.1 mg PO HS HTN 10/16/17 09/13/21 hydrochlorothiazide 25 mg tablet 25 mg PO BID HTN 10/16/17 09/13/21 Allergies Allergy/AdvReac Type Severity Reaction Status Date / Time No Known Allergies Allergy Verified 06/22/20 09:51 [facility] Disclaimer: The information contained in this section may have been updated after the patient was seen, as this information can be updated by other users. Medical History (Updated 02/09/22 @ 16:43 by Sujey Andrade APRN) Anxiety COPD (chronic obstructive pulmonary disease) Depression Hypertension Liver disease Migraine Surgical History (Updated 02/09/22 @ 15:26 by Carole Villeda RN) History of cholecystectomy Social History (Updated 02/09/22 @ 15:26 by Carole Villeda RN) Smoking Status: Current every day smoker tobacco type: cigarettes packs per day: 1 alcohol intake: never substance use type: heroin current occupational status: employed Travel in the last 8 weeks: None ROS Obtained: Yes All systems reviewed & no additional complaints except as documented and Yes Systems reviewed as appropriate & no additional complaints except as documented Constitutional Constitutional: Reports system reviewed and no additional complaints, except as documented and Reports as per HPI ENT Ears, Nose, Mouth, and Throat: Reports system reviewed and no additional complaints, except as documented and Reports as per HPI Cardiovascular Cardiovascular: Reports system reviewed and no additional complaints, except as documented and Reports as per HPI Respiratory Respiratory: Reports system reviewed and no additional complaints, except as documented and Reports as per HPI Musculoskeletal Musculoskeletal: Reports system reviewed and
[2022-02-09 16:01] VITALS: BP 140/87; PULSE 74; RESP 18; TEMP 36.6; O2SAT 96
== END 2022-02-09 17:04 | disposition home or self-care (01) ==
PROVIDERS: Emergency Provider Nurse Practitioner; PCP Nurse Practitioner Family
DX: S83.91XA Sprain of unspecified site of right knee, initial encounter (principal)
CPT/HCPCS: 73562; 99212; G0463

== ENCOUNTER 2022-03-08 02:01 | Emergency (ER) | payer OTHER, SELFPAY ==
[2022-03-08 02:01] VITALS: BP 143/72; PULSE 89; RESP 22; TEMP 37.1; O2SAT 96; BMI 23.7
--- NOTE | 2022-03-08 02:06 | CT_ITS ---
PROCEDURE INFORMATION: Exam: CT Lumbar Spine With Contrast Exam date and time: 03/08/2022 3:08 AM Age: 56 years old Clinical indication: Low back pain TECHNIQUE: Imaging protocol: Computed tomography of the lumbar spine with contrast. Radiation optimization: All CT scans at this facility use at least one of these dose optimization techniques: automated exposure control; mA and/or kV adjustment per patient size (includes targeted exams where dose is matched to clinical indication); or iterative reconstruction. Contrast material: ISOVUE; Contrast volume: 50 ml; Contrast route: IV; COMPARISON: CR [id number] XR lumbar spine min 4V 01/04/2018 2:55 PM FINDINGS: Bones/joints: There are moderate degenerative changes of the spine. Endplate osteophytes and facet arthropathy. Multilevel disc space narrowing. At the L2-L3 level moderate canal narrowing. At the L3-L4 level moderate to severe canal narrowing. At the L4-L5 level moderate to severe canal narrowing. Soft tissues: Unremarkable. IMPRESSION: No acute findings. DJD.
--- NOTE | 2022-03-08 02:06 | CT_ITS ---
PROCEDURE INFORMATION: Exam: CT Thoracic Spine With Contrast Exam date and time: 03/08/2022 3:04 AM Age: 56 years old Clinical indication: Pain in thoracic spine TECHNIQUE: Imaging protocol: Computed tomography of the thoracic spine with contrast. Radiation optimization: All CT scans at this facility use at least one of these dose optimization techniques: automated exposure control; mA and/or kV adjustment per patient size (includes targeted exams where dose is matched to clinical indication); or iterative reconstruction. Contrast material: ISOVUE; Contrast volume: 50 ml; Contrast route: IV; COMPARISON: CT CERVICAL SPINE W CON 03/08/2022 3:01 AM FINDINGS: Bones/joints: There are moderate degenerative changes of the spine. Endplate osteophytes and facet arthropathy. Multilevel disc space narrowing. Multilevel superior endplate Schmorl's node formation. Soft tissues: Unremarkable. IMPRESSION: No acute findings. DJD.
--- NOTE | 2022-03-08 02:06 | CT_ITS ---
PROCEDURE INFORMATION: Exam: CT Cervical Spine With Contrast Exam date and time: 03/08/2022 3:01 AM Age: 56 years old Clinical indication: Neck pain TECHNIQUE: Imaging protocol: Computed tomography of the cervical spine with contrast. Radiation optimization: All CT scans at this facility use at least one of these dose optimization techniques: automated exposure control; mA and/or kV adjustment per patient size (includes targeted exams where dose is matched to clinical indication); or iterative reconstruction. Contrast material: ISOVUE; Contrast volume: 50 ml; Contrast route: IV; COMPARISON: MR ANGIO HEAD WO CON 07/09/2021 10:31 AM FINDINGS: Bones/joints: There are moderate degenerative changes of the spine. Endplate osteophytes and facet arthropathy. Multilevel disc space narrowing. At the C3-C4 level moderate right foraminal stenosis. At the C4-C5 level [id number] bilateral foraminal stenosis. At the C5-C6 level moderate bilateral foraminal stenosis. At the C6-C7 level moderate bilateral foraminal stenosis and moderate canal stenosis. Lungs: Lung apices are normal. Soft tissues: Unremarkable. IMPRESSION: No acute findings. DJD.
[2022-03-08 02:30] VITALS: BP 148/82; PULSE 101; O2SAT 99
[2022-03-08 02:37] LABS: Basophils # 0.1 K/mm3 (0-0.2); Basophils % 0.4 % (0.1-2.0); Eosinophils # 0.2 K/mm3 (0.0-0.4); Hematocrit 43.1 % (42.0-52.0); Hemoglobin 14.1 g/dL (14.1-18.0); Lymphocytes % 8.5 % (10-50); Mean Corpuscular HGB Conc 32.6 g/dL (31.8-35.4); Mean Corpuscular Hemoglobin 28.2 pg (27.0-31.2); Mean Corpuscular Volume 86.4 fl (80-94); Monocytes # 0.2 K/mm3 (0.1-1.0); Monocytes % 1.5 % (1.7-9.3); Neutrophils # 10.4 K/mm3 (1.8-7.8); Neutrophils % 87.5 % (37.0-80.0); Platelet Count 134 K/mm3 (142-424); Red Blood Count 4.99 M/mm3 (4.60-6.20); Red Cell Distribution Width 14.1 % (11.5-17.5); White Blood Count 11.9 K/mm3 (4.8-10.8)
[2022-03-08 02:39] LABS: MANUAL DIFFERENTIAL MANUAL DIFFERENTIAL (MANUAL DIFF)
[2022-03-08 02:41] LABS: Alanine Aminotransferase 30 U/L (12-78); Albumin Level 4.3 g/dl (3.5-5.0); Albumin/Globulin Ratio 1.3 (1.1-1.8); Alkaline Phosphatase 163 U/L (38-126); Anion Gap 11.6 mEq/L (5-15); Aspartate Amino Transferase 54 U/L (17-59); Bilirubin,Total 0.5 mg/dl (0.2-1.3); Blood Urea Nitrogen 21 mg/dl (9-20); Calcium 9.7 mg/dl (8.4-10.2); Carbon Dioxide 27 mmol/L (22.0-30.0); Chloride 102 mmol/L (98-107); Creatinine Clearance Estimated 107 mL/min (50-200); Estimated Glomerular Filt Rate 88 ml/min (>60); GFR (African American) 106 ML/MIN (>60); Globulin 3.4 g/dL (1.3-3.2); Glucose 135 mg/dl (74-100); Potassium 3.6 mmoL/L (3.5-5.1); Sodium 137 mmol/L (136-145); Total Protein,Serum 7.7 g/dl (6.3-8.2)
--- NOTE | 2022-03-08 02:41 | HMH.EDBACK ---
Discharge Plan Disposition Patient Disposition: Home, Self-Care Chief Complaint: Back Pain/Injury Prescriptions Prescriptions: No Action clonidine HCl 0.1 MG tablet 0.1 mg PO HS hydrochlorothiazide 25 MG tablet 25 mg PO BID Referrals Follow up/Referrals: Gila Ruggiero APRN [Primary Care Provider] - See instructions Tony Roy MD [Staff Physician] - See instructions Clinical Impressions Clinical Impression: Lumbar radicular syndrome Instructions Patient Instructions: DI for Low Back Pain Discharge ED Provider: Eligio Santana Back Pain HPI General Chief Complaint: Back Pain/Injury Stated Complaint: Pain Time Seen by Provider: 03/08/22 02:41 Mode of Arrival: EMS Source of Information: Patient, EMS and Medical Record Limitations: No Limitations Description of Symptoms (Recalled from ER Triage Doc. by RN): pt c/o lower back pain and states he used iv herion History of Present Illness HPI Narrative: pt reports not feeling well this am and has lumbar pain - denied any ivdu today- no fever and no trauma MD Complaint: back pain Onset (ago): hour(s) Duration: intermittent Similar Symptoms Previously: No Location: lumbar spine Severity: moderate Quality: dull Radiation: none Exacerbating factors: none Associated symptoms: denies other symptoms Related Data Home Medications Medication Instructions Recorded Confirmed clonidine HCl 0.1 mg tablet 0.1 mg PO HS HTN 10/16/17 09/13/21 hydrochlorothiazide 25 mg tablet 25 mg PO BID HTN 10/16/17 09/13/21 Allergies Allergy/AdvReac Type Severity Reaction Status Date / Time No Known Allergies Allergy Verified 06/22/20 09:51 [facility] Disclaimer: The information contained in this section may have been updated after the patient was seen, as this information can be updated by other users. Medical History (Updated 03/08/22 @ 04:33 by Eligio Santana MD) Anxiety COPD (chronic obstructive pulmonary disease) Depression Hypertension Liver disease Migraine Surgical History (Updated 02/09/22 @ 15:26 by Carole Villeda RN) History of cholecystectomy Social History (Updated 02/09/22 @ 15:26 by Carole Villeda RN) Smoking Status: Current every day smoker tobacco type: cigarettes packs per day: 1 alcohol intake: never substance use type: heroin current occupational status: employed Travel in the last 8 weeks: None ROS Obtained: Yes All systems reviewed & no additional complaints except as documented Physical Exam General General appearance: alert and anxious Head Head exam: normocephalic Eye Eye exam: Present PERRL and EOMI; Absent scleral icterus ENT ENT exam: Present mucous membranes moist Neck Neck exam: Present full ROM and trachea midline; Absent meningismus or lymphadenopathy Respiratory Respiratory exam: Present normal lung sounds bilaterally; Absent respiratory distress Cardiovascular Cardiovascular exam: Present regular rate; Absent systolic murmur Abdominal Exam Abdominal exam: Present soft; Absent tenderness Extremities Exam Extremities exam: Present full ROM Back Exam Back exam: Absent CVA tenderness (R), CVA tenderness (L), vertebral tenderness, straight leg raise (R) or straight leg raise (L) Neurological Exam Neurological exam: Present alert, oriented X3 and CN II-XII intact; Absent motor sensory deficit Psychiatric Psychiatric exam: Present anxious Skin Skin exam: Absent rash Medical Decision Making Medical Records Medical records reviewed: Yes I reviewed the patient's medical records. Talon Inquiry Pt receiving controlled substance: No Vital Signs: 03/08/22 02:01 03/08/22 02:30 03/08/22 04:23 Temperature 98.8 F Temperature Source Oral Pulse Rate 101 H Pulse Rate [Right] 89 Respiratory Rate 22 Blood Pressure 148/82 H Blood Pressure [Right Arm] 143/72 H Blood Pressure Mean 111 Blood Pressure Mean [Right Arm] 95 02 Sat by Pulse Oximetry 96 99 Oxygen Deliver
[2022-03-08 02:42] LABS: Acetaminophen < 10 ug/ml (10-30); Salicylate < 1.0 mg/dL (2.0-20.0)
[2022-03-08 02:43] LABS: Ethyl Alcohol < 10 mg/dl (0-10); Lactic Acid 2.2 mmol/L (0.7-2.1)
--- NOTE | 2022-03-08 02:43 | XR_ITS ---
PROCEDURE INFORMATION: Exam: XR Chest Exam date and time: 03/08/2022 3:00 AM Age: 56 years old Clinical indication: Other: Posterior pain TECHNIQUE: Imaging protocol: Radiologic exam of the chest. Views: 1 view. COMPARISON: CR XR CHEST PORTABLE 09/13/2021 12:59 AM FINDINGS: Lungs: Mild atelectatic changes at the lung bases. Pleural spaces: Unremarkable. No pleural effusion. No pneumothorax. Heart/Mediastinum: Unremarkable. No cardiomegaly. Bones/joints: Unremarkable. IMPRESSION: Mild atelectasis.
[2022-03-08 02:47] LABS: C-Reactive Protein 4.2 mg/L (0-4)
[2022-03-08 02:53] LABS: Microscopic, Urine URINE MICROSCOPIC (MICROSCOPIC)
[2022-03-08 02:54] LABS: Appearance,Urine CLEAR (Clear); Bilirubin,Urine Negative (Negative); Blood, Urine Negative (Negative); Color,Urine YELLOW (Yellow); Glucose,Urine (UA) Negative (Negative); Ketones,Urine Negative (Negative); Leukocyte Esterase,Urine Negative (Negative); Nitrate,Urine Negative (Negative); Protein,Urine Negative (Negative); Urobilinogen,Urine 0.2 EU/dl (0.2)
[2022-03-08 03:00] LABS: Procalcitonin 0.234 ng/mL (0.0-2.0)
[2022-03-08 03:05] LABS: WBC,Urine Occasional #/hpf (0-3)
[2022-03-08 03:06] LABS: Bacteria,Urine Trace /lpf; Barbiturates Screen,Urine Negative ng/ml (<200); Squamous Epithelial Cell,Urine Occasional #/hpf (0-5)
[2022-03-08 03:07] LABS: Benzodiazepines Screen,Urine Negative ng/ml (<200)
[2022-03-08 03:08] LABS: Amphetamine/Metha Screen,Urine Negative ng/ml (<1000); Cannabinoid Screen,Urine Positive ng/ml (<50)
[2022-03-08 03:09] LABS: Cocaine Screen,Urine Negative ng/ml (<300)
[2022-03-08 03:10] LABS: Erythrocyte Sedimentation Rate 7 mm/hr (0-20)
[2022-03-08 03:10] LABS: Methadone Screen,Urine Negative ng/ml (<300); Opiate Screen,Urine Negative ng/ml (<300)
[2022-03-08 03:11] LABS: Phencyclidine Screen,Urine Negative ng/ml (<25)
[2022-03-08 03:53] LABS: Eosinophils % 3 % (0-3); Lymphocytes % 11 % (10-50); Monocytes % 1 % (2-9); Neutrophils % 85 % (42-76); Total Cells Counted 100
[2022-03-08 03:54] LABS: Platelet Estimate Normal; RBC Morphology Normal
[2022-03-08 04:23] VITALS: BP 148/82; PULSE 85; RESP 16; TEMP 37.1; O2SAT 98
== END 2022-03-08 04:39 | disposition home or self-care (01) ==
PROVIDERS: Emergency Provider Emergency Medicine; PCP Nurse Practitioner Family
DX: M54.16 Radiculopathy, lumbar region (principal); I10 Essential (primary) hypertension; G43.909 Migraine, unspecified, not intractable, without status migrainosus; K76.9 Liver disease, unspecified; J44.9 Chronic obstructive pulmonary disease, unspecified; F17.210 Nicotine dependence, cigarettes, uncomplicated; F32.A Depression, unspecified; F41.9 Anxiety disorder, unspecified
CPT/HCPCS: 71045; 72126; 72129; 72132; 80053; 80305; 80329; 81001; 83605; 84145; 85007; 85025; 85651; 86140; 87040; 96361; 96374; 96375; 99285; J2405; Q9967

== ENCOUNTER 2023-01-08 23:47 | Emergency (ER) | payer OTHER, SELFPAY ==
[2023-01-08 23:49] VITALS: BP 128/87; PULSE 125; RESP 18; TEMP 36.8; O2SAT 98; BMI 19.1
[2023-01-09] VITALS (13 sets, daily range): BP systolic 128–153; BP diastolic 56–103; PULSE 65–105; RESP 18–20; TEMP 36.8; O2SAT 95–98
--- NOTE | 2023-01-09 00:03 | XR_ITS ---
PROCEDURE INFORMATION: Exam: XR Left Clavicle, Complete Exam date and time: 01/09/2023 12:37 AM Age: 57 years old Clinical indication: Pain; Shoulder; Left; Additional info: Trauma, tenderness TECHNIQUE: Imaging protocol: Radiologic exam of the left clavicle. Complete exam. Views: Any number of views. COMPARISON: CT CERVICAL SPINE W CON 03/08/2022 3:01 AM FINDINGS: Bones/joints: Anatomic alignment is maintained. No acute fracture. Mild-moderate AC joint arthrosis. Soft tissues: Soft tissue protuberance along the left AC joint. IMPRESSION: [id number] AC joint arthrosis. Recommend correlation with history/physical exam.
--- NOTE | 2023-01-09 00:03 | XR_ITS ---
PROCEDURE INFORMATION: Exam: XR Left Shoulder Exam date and time: 01/09/2023 12:37 AM Age: 57 years old Clinical indication: Pain; Shoulder; Left; Additional info: Trauma, pain TECHNIQUE: Imaging protocol: Radiologic exam of the left shoulder. Views: 2 or more views. COMPARISON: CT CERVICAL SPINE W CON 03/08/2022 3:01 AM FINDINGS: Bones/joints: Anatomic alignment is maintained. No acute fracture osseous Bankart or Hill-Sachs defect. Mild AC joint arthrosis. Soft tissues: Soft tissue protuberance along the AC joint. IMPRESSION: 1. Mild AC joint arthrosis. Diagnostic considerations include low grade AC joint separation. 2. Other findings as above.
--- NOTE | 2023-01-09 00:03 | XR_ITS ---
PROCEDURE INFORMATION: Exam: XR Chest Exam date and time: 01/09/2023 12:37 AM Age: 57 years old Clinical indication: Chest wall pain; Additional info: Trauma, chest pain TECHNIQUE: Imaging protocol: Radiologic exam of the chest. Views: 1 view. COMPARISON: CR XR CHEST PORTABLE 03/08/2022 3:00 AM FINDINGS: Lungs: The lungs are adequately inflated. No focal consolidation. Pleural spaces: No pneumothorax or pleural effusion. Heart/Mediastinum: The cardiomediastinal silhouette has normal size and contour. Bones/joints: No displaced fracture. Intraperitoneal space: The visualized abdomen is unremarkable. IMPRESSION: No acute cardiopulmonary disease.
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
--- NOTE | 2023-01-09 02:44 | PC.NURSE ---
Sit visit with pt after medication administration, provided snacks and drinks from pantry, pt denies needs at this time, no acute distress noted or reported
--- NOTE | 2023-01-09 05:54 | PC.NURSE ---
Sit visit with patient, advised that medication administration was effective, denies needs at this time, no acute distress noted/reported
--- NOTE | 2023-01-09 06:24 | PC.NURSE ---
During pt reassessment pt advised that I'm getting worse. I feel like I'm detoxing more. I don't wanna leave because I know I'll just go do dope again. This shit is gonna kill me if I don't quit. I will say that I'm gonna kill myself so I don't have to leave it that's what it takes. Pt redirected by nurse and ED Provider at this time.
--- NOTE | 2023-01-09 07:44 | ECG_ITS ---
APPROVED REPORT Exam: Resting ECG HR:80 bpm ECG Measurements Heart Rate 80 AXES OR 173 P 82 QRSd 90 QRS 76 QT 397 T 72 QTc 433 Conclusion SINUS RHYTHM MODERATE ST DEPRESSION [0.05+ mV ST DEPRESSION] ABNORMAL ECG UNCONFIRMED REPORT Electronically signed by : Jackson Ceja MD 01/09/2023 20:19:53
--- NOTE | 2023-01-09 08:35 | PC.NURSE ---
spoke with Juanita in care management , pt is homeless with no place to go
--- NOTE | 2023-01-09 09:01 | PC.NURSE ---
Patient increasing agitated and requesting to go outside to smoke. Patient educated on smoking policy. States he is leaving and wants to be discharged at this time. Roxanne with Care Management in room with patient and gave him resources that he can use. Patient states he will not go to get help at this time.
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
--- NOTE | 2023-01-09 09:18 | PC.NURSE ---
called and spoke with [facility] who stated they would contact Nirav who is over their rehab operations. spoke with the patient and explained to him what i was trying to accomplish for him and that they should be calling him in just a few minutes for a consult. pt agreeable at this time.
--- NOTE | 2023-01-09 09:52 | PC.NURSE ---
spoke with Leigh again at [facility] for pt update. She stated that Nirav had recieved his info and was working on resources for him now. I explained to her that the patient was anxious and ready to leave. She stated she would go ahead and have Nirav call the patient and speak with him to try to ease his mind and reassure him during the process.
--- NOTE | 2023-01-09 10:10 | PC.NURSE ---
Nirav from [facility] called me with a number for [facility] in [place] with an inpatient bed for the patient. pt remains discharged and was found to be sitting outside in a chair looking for a ride. i told him about the available bed and that they wanted to speak with him for a consult. pt is tearful and anxious but still agreeable to help.
--- NOTE | 2023-01-09 10:25 | PC.NURSE ---
pt on the phone with intake at [facility] who stated they would take him as inpatient and offer him transportation to the facility after getting approval from their provider. waiting on a call back at this time
--- NOTE | 2023-01-09 10:51 | PC.NURSE ---
checked on patient in the lobby and gave him a drink. pt denies any other needs at this time except help this nurse assured him that is what she was getting him and would continue to check on him. pt wants to remain discharged at this time but stated he will stay in the lobby.
--- NOTE | 2023-01-09 11:35 | PC.NURSE ---
SPOKE WITH RAMIREZ AT [facility] WHO CONFIRMED THE PATIENT IS ACCEPTED AT THEIR FACILITY AND THEY HAVE AN UBER SET TO PICK HIM UP AT 1PM
--- NOTE | 2023-01-09 11:50 | PC.NURSE ---
WENT AND GOT THE PATIENT LUNCH FROM THE [facility]. NO OTHER NEEDS REPORTED AT THIS TIME
--- NOTE | 2023-01-09 13:31 | PC.NURSE ---
CALLED NEIL TO SEE WHY THE PATIENT'S RIDE WAS NOT HERE YET. THEY EXPLAINED TO ME THAT THEY CALLED AND SPOKE TO A CHARGE NURSE A LITTLE BIT AGO TO LET US KNOW THE PT NO LONGER HAD A RIDE AND THEY WERE STILL TRYING TO FIND HIM ONE.
--- NOTE | 2023-01-09 13:50 | PC.NURSE ---
SPOKE WITH ARCHANA HASTINGS WHO STATED HE WOULD TAKE THE PATIENT TO [facility] FOR $120 AND COULD BE UP HERE IN 15 MINUTES TO GET HIM. SPOKE WITH TIFFANY AT [facility] WHO WAS AGREEABLE TO HUGHES AND PAYMENT WHEN THE PATIENT ARRIVED. PT STILL AGREEABLE FOR TREATMENT AND DENIES ANY COMPLAINTS AT THIS TIME
--- NOTE | 2023-01-09 14:15 | PC.NURSE ---
ARCHANA AT [facility] TO TRANSFER PT AT THIS TIME. PT AMBULATED TO VEHICLE. NO COMPLAINTS REPORTED
== END 2023-01-09 10:04 | disposition home or self-care (01) ==
PROVIDERS: Emergency Provider Emergency Medicine; PCP Nurse Practitioner Family
DX: F11.13 Opioid abuse with withdrawal (principal); M25.512 Pain in left shoulder; F17.210 Nicotine dependence, cigarettes, uncomplicated; J44.9 Chronic obstructive pulmonary disease, unspecified; I10 Essential (primary) hypertension
CPT/HCPCS: 71045; 73000; 73030; 93005; 99285

== ENCOUNTER 2023-06-02 15:40 | Outpatient (CLI) | payer OTHER, SELFPAY ==
[2023-06-02 16:10] LABS: Basophils % 0.7 % (0.1-2.0); Eosinophils # 0.4 K/mm3 (0.0-0.4); Eosinophils % 6.5 % (0.1-12.0); Hematocrit 44.9 % (42.0-52.0); Hemoglobin 15.1 g/dL (14.1-18.0); Lymphocytes # 2.5 K/mm3 (0.7-4.5); Lymphocytes % 41.8 % (10-50); Mean Corpuscular HGB Conc 33.5 g/dL (31.8-35.4); Mean Corpuscular Hemoglobin 29.6 pg (27.0-31.2); Mean Corpuscular Volume 88.4 fl (80-94); Monocytes # 0.5 K/mm3 (0.1-1.0); Monocytes % 7.8 % (1.7-9.3); Neutrophils # 2.6 K/mm3 (1.8-7.8); Neutrophils % 43.3 % (37.0-80.0); Platelet Count 113 K/mm3 (142-424); Red Blood Count 5.09 M/mm3 (4.60-6.20); Red Cell Distribution Width 13.9 % (11.5-17.5); White Blood Count 6.1 K/mm3 (4.8-10.8)
[2023-06-02 16:25] LABS: Chloride 107 mmol/L (98-107); Sodium 142 mmol/L (136-145)
[2023-06-02 16:26] LABS: Potassium 3.5 mmoL/L (3.5-5.1)
[2023-06-02 16:28] LABS: Alanine Aminotransferase 10 U/L (12-78); Albumin Level 4.3 g/dl (3.5-5.0); Albumin/Globulin Ratio 1.7 (1.1-1.8); Alkaline Phosphatase 108 U/L (38-126); Anion Gap 11.5 mEq/L (5-15); Aspartate Amino Transferase 26 U/L (17-59); Bilirubin,Total 0.7 mg/dl (0.2-1.3); Blood Urea Nitrogen 9 mg/dl (9-20); Calcium 9.2 mg/dl (8.4-10.2); Carbon Dioxide 27 mmol/L (22.0-30.0); Estimated Glomerular Filt Rate 139 ml/min (>60); GFR (African American) 169 ML/MIN (>60); Globulin 2.6 g/dL (1.3-3.2); Glucose 87 mg/dl (74-100); Total Protein,Serum 6.9 g/dl (6.3-8.2)
== END 2023-06-02 23:59 ==
LOC: LAB.DROPOF 15:42
PROVIDERS: PCP Nurse Practitioner Family; Visit Provider Nurse Practitioner Family
DX: K74.60 Unspecified cirrhosis of liver (principal)
CPT/HCPCS: 80053; 85025

== ENCOUNTER 2023-06-08 10:17 | Outpatient (CLI) | payer OTHER, SELFPAY ==
--- NOTE | 2023-06-08 10:17 | US_ITS ---
FINAL REPORT CLINICAL HISTORY: cirrhosis COMPARISON: None FINDINGS: Sonographic images of the right upper quadrant were obtained. The pancreas is within normal limits. The liver has a mildly nodular peripheral margin probably due to cirrhosis. The portal vein is distended measuring up to approximately 1.5 cm. The gallbladder is surgically absent. The common bile duct is enlarged at 1.4 cm. Limited images of the right kidney are unremarkable. IMPRESSION: Cirrhosis with questionable underlying portal hypertension. Dilated common duct, probably related to prior cholecystectomy. Reviewed, Interpreted and Dictated by Jimmy Rosado MD Transcribed by Yi Torres Authenticated and [facility]
== END 2023-06-08 23:59 ==
LOC: RAD 10:17
PROVIDERS: PCP Nurse Practitioner Family; Visit Provider Nurse Practitioner Family
DX: K74.60 Unspecified cirrhosis of liver (principal)
CPT/HCPCS: 76705

== ENCOUNTER 2023-07-04 09:52 | Outpatient (CLI) | payer OTHER, SELFPAY ==
--- NOTE | 2023-07-04 09:58 | XR_ITS ---
FINAL REPORT CLINICAL HISTORY: right knee pain COMPARISON: 02/09/2022 FINDINGS: RIGHT KNEE 3 views of the right knee were obtained. There is no acute fracture or dislocation. There is healed fracture deformity of the proximal tibia extending to the tibial plateau. There is deformity of the proximal tibial diaphysis. There has been progression of advanced narrowing of the lateral compartment joint space and moderate narrowing of the medial compartment joint space. There is subchondral sclerosis and osteophyte formation. There is a large osteophyte at the lateral margin of the lateral tibial plateau measuring 1.8 cm. Soft tissues are unremarkable. IMPRESSION: Progression of degenerative changes without acute bony abnormality. Reviewed, Interpreted and Dictated by Jimmy Rosado MD Transcribed by Yi Torres Authenticated and [facility]
== END 2023-07-04 23:59 | disposition home or self-care (01) ==
LOC: RAD 09:53
PROVIDERS: PCP Nurse Practitioner Family; Visit Provider Orthopaedic Surgery
DX: M25.561 Pain in right knee (principal)
CPT/HCPCS: 73562

== ENCOUNTER 2023-11-17 09:33 | Outpatient (CLI) | payer OTHER, SELFPAY ==
[2023-11-17 17:28] LABS: HIV (1&2) Antibody Rapid NONREACTIVE (NONREACTIVE)
== END 2023-11-17 23:59 | disposition home or self-care (01) ==
LOC: LAB.DROPOF 11-20 09:34
PROVIDERS: PCP Nurse Practitioner Family; Visit Provider Nurse Practitioner Family
DX: K74.60 Unspecified cirrhosis of liver (principal)
CPT/HCPCS: 87389; 87522

== ENCOUNTER 2023-11-28 14:30 | Outpatient (CLI) | payer OTHER, SELFPAY ==
[2023-11-28 17:39] LABS: T4 (Thyroxine) 15.9 ug/dl (5.53-11.0)
[2023-11-28 17:40] LABS: Free T4 (Free Thyroxine) 3.52 ng/dl (0.78-2.19)
[2023-11-28 17:53] LABS: Thyroid Stimulating Hormone 0.02 uIU/mL (0.465-4.68)
[2023-11-30 08:41] LABS: Thyroid Peroxidase Antibodies 25 IU/mL (0-34); Triiodothyronine (T3) Free 10.3 pg/mL (2.0-4.4)
[2023-11-30 15:15] LABS: Thyroglobulin Level <1.0 IU/mL (0.0-0.9)
== END 2023-11-28 23:59 | disposition home or self-care (01) ==
LOC: LAB.DROPOF 11-29 12:35
PROVIDERS: PCP Nurse Practitioner Family; Visit Provider Nurse Practitioner Family
DX: E05.00 Thyrotoxicosis with diffuse goiter without thyrotoxic crisis or storm (principal)
CPT/HCPCS: 84436; 84439; 84443; 84481; 86376; 86800

== ENCOUNTER 2024-01-25 18:07 | Emergency (ER) | payer OTHER, SELFPAY ==
[2024-01-25 18:09] VITALS: BP 142/78; PULSE 90; RESP 22; TEMP 36.8; O2SAT 96; BMI 22.4
--- NOTE | 2024-01-25 18:25 | XR_ITS ---
PROCEDURE INFORMATION: Exam: XR Right Hand Exam date and time: 01/25/2024 6:24 PM Age: 58 years old Clinical indication: Pain; Hand; Right; Additional info: Edema, pain x 1 day TECHNIQUE: Imaging protocol: Radiologic exam of the right hand. Views: 3 or more views. COMPARISON: No relevant prior studies available. FINDINGS: Bones/joints: Advanced degenerative changes of the 1st carpometacarpal joint. No acute fracture identified. Soft tissues: Normal. IMPRESSION: No acute abnormality.
--- NOTE | 2024-01-25 18:26 | HMH.EDGENADL ---
Discharge Plan Prescriptions Prescriptions: No Action buprenorphine-naloxone 8-2 mg tablet, sublingual 2 tab sublingual DAILY Patient Comments: DISSOLVE 2 TABLETS UNDER THE TONGUE ONCE DAILY IN THE MORNING lamotrigine [Lamictal] 25 mg tablet 25 mg PO DAILY Qty: 42 0RF Rx Instructions: Take one tablet daily for two weeks, then increase to two tablets daily. If you develop a rash, stop the medication and call the clinic. olanzapine [Zyprexa] 10 mg tablet 10 mg PO BID Qty: 60 2RF propranolol 20 mg tablet 20 mg PO TID PRN (Reason: anxiety) Qty: 90 2RF Referrals Follow up/Referrals: Gila Ruggiero APRN [Primary Care Provider] - See instructions Clinical Impressions Clinical Impression: Flexor tenosynovitis of finger Print Language Print Language: Italian Discharge ED Provider: Dom Gomez General Adult HPI General Chief complaint: Extremity Problem,Nontraumatic Stated complaint: right hand pain and swollen Time Seen by Provider: 01/25/24 18:26 Mode of Arrival: Ambulatory Source of Information: Patient Limitations: No Limitations Description of Symptoms (Recalled from ER Triage Doc. by RN): r hand edema,redness and pain History of Present Illness HPI narrative: Danilo Vick is a 58-year-old male with a past medical history of IV drug use and anxiety who presents to the emergency department for complaints of right hand swelling and pain. Patient states that he had been working in his shop but does not remember injuring his right hand in any way. Over the last several hours, he reports increased redness and swelling to the right hand at the knuckle of the second digit with swelling. He states that it is warm and has difficulty extending and flexing this finger. He states that an episode like this has happened before, however it tracked up his arm at that time but does not appear to be tracking up his arm currently. He denies any IV drug use in over 10 months but does state that he did take oral drugs today. Patient denies any fevers. He denies any foreign objects being stuck in the hand. Related Data Home Medications ?Medication ?Instructions ?Recorded ?Confirmed buprenorphine 8 mg-naloxone 2 mg 2 tab sublingual DAILY 06/02/23 01/15/24 sublingual tablet Previous Rx's ?Medication ?Instructions ?Recorded lamotrigine 25 mg tablet (Lamictal) 25 mg PO DAILY #42 tabs 10/30/24 olanzapine 10 mg tablet (Zyprexa) 10 mg PO BID #60 tabs 01/15/24 propranolol 20 mg tablet 20 mg PO TID PRN anxiety #90 tabs 01/15/24 Allergies Allergy/AdvReac Type Severity Reaction Status Date / Time No Known Allergies Allergy Verified 01/15/24 16:09 [facility] Disclaimer: The information contained in this section may have been updated after the patient was seen, as this information can be updated by other users. Medical History Liver disease Depression Anxiety Migraine COPD (chronic obstructive pulmonary disease) Hypertension Surgical History S/P ORIF (open reduction internal fixation) fracture 2001 hardware removed at in 2019 History of cholecystectomy Family History Family/Other No significant family history Social History Smoking Status: Current every day smoker tobacco type: cigarettes packs per day: 1 alcohol intake: never substance use type: former substance user, marijuana and heroin current occupational status: employed Travel in the last 8 weeks: None caregiver/support person: No foster care: No lives independently: Yes service: No long-term: No Hx Recent Travel: No Other Medical History Have you received the Flu Vaccine for this season: No Have you received the Pneumonia Vaccine: No ROS Obtained: Yes Systems reviewed as appropriate & no additional complaints except as documented Physical Exam General General appearance: alert Comment: Appears uncomfortable, tearful Head Head exam: atraumatic Eye Eye exam: Present normal appearance ENT ENT exam: Present normal external ear exam Neck Neck exam: Present full ROM Chest Chest inspection: Present symmetric chest wall rise Respiratory Respiratory exam: Present normal lung sounds bilaterally; Absent respiratory distress Cardiovascular Cardiovascular exam: Present regular rate and normal rhythm Abdominal Exam Abdominal exam: Present soft; Absent tenderness or guarding exam: Present deferred Expanded Upper Extremity Exam Right: Comment: Swelling and erythema to the right second digit from the MCP joint extending distally. Significant tenderness in this area. Patient's finger is held in flexion. Pain with passive extension. Dactylitis to the second digit. Tenderness over the flexor tendon distribution. Tenderness over the dorsal aspect of the finger as well. The entire digit and dorsal surface of the hand is warm. Limited range of motion of second digit secondary to pain. Back Exam Back exam: Present normal inspection Neurological Exam Neurological exam: Present alert and oriented X3 Psychiatric Psychiatric exam: Present normal affect Skin Skin exam: Present warm and dry Medical Decision Making Medical Records Screening: Per USPSTF and CDC recommendations, given the prevalence of disease in our region, it is our hospital?s policy to screen for HIV and viral Hepatitis for all patients aged 18 and over and those with ongoing risk factors. [facility]on Inquiry Pt receiving controlled substance: No Vital Signs: 01/25/24 18:09 Temperature 98.2 F Temperature Source Oral Pulse Rate [Left] 90 Respiratory Rate 22 Blood Pressure [Left Arm] 142/78 H Blood Pressure Mean [Left Arm] 99 02 Sat by Pulse Oximetry 96 Lab Data Lab Results 01/25/24 18:46: WBC 11.8 H, RBC 4.84, Hgb 14.5, Hct 41.3 L, MCV 85.2, MCH 29.9, MCHC 35.1, RDW 14.5, Plt Count 166, MPV 8.8, Neut % (Auto) 75.8, Lymph % (Auto) 15.0, Heard % (Auto) 7.0, Eos % (Auto) 1.4, Baso % (Auto) 0.7, Neut # (Auto) 9.0 H, Lymph # (Auto) 1.8, Heard # (Auto) 0.8, Eos # (Auto) 0.2, Baso # (Auto) 0.1, ESR 15, Sodium 141, Potassium 3.9, Chloride 104, Carbon Dioxide 28, Anion Gap 12.9, BUN 28 H, Creatinine 1.00, Estimated Creat Clear 89, Estimated GFR 77, Est GFR ( Amer) 93, Glucose 125 H, Calcium 9.7, C-Reactive Protein 9.0 H, Procalcitonin 2.84 H 01/25/24 19:44: VBG pH 7.42 H, VBG pCO2 41.7, VBG pO2 58.6 H, VBG HCO3 26.5, VBG Total CO2 27.8 H, VBG O2 Saturation 91.7 H, VBG Base Excess 2.0, VBG Lactic Acid 1.4 01/25/24 18:46 01/25/24 18:46 Orders (Tests/Meds): ED MEDICATIONS Generic Name Dose Route Start Last Admin Trade Name Freromina PRN Reason Stop Dose Admin Sodium Chloride 10 ml 01/25/24 19:36 01/25/24 19:37 Sodium Chloride 0.9% 10ml Syr (Rad Only) IV 02/24/24 19:35 10 ml NEEDED PRN Administration Maintain IV Site Discontinued Medications Generic Name Dose Route Start Last Admin Trade Name Freq PRN Reason Stop Dose Admin Vancomycin HCl 1,000 mg/ 250 mls @ 125 mls/hr 01/25/24 20:02 01/25/24 20:59 Sodium Chloride IV 01/25/24 20:03 Not Given ONCE ONE Vancomycin HCl 2,000 mg/ 250 mls @ 125 mls/hr 01/25/24 20:30 01/25/24 21:00 Sodium Chloride IV 01/25/24 22:29 Not Given ONCE ONE Dalbavancin 1,500 mg/ Dextrose 250 mls @ 500 mls/hr 01/25/24 20:52 IV 01/25/24 20:53 ONCE ONE Iopamidol 75 ml 01/25/24 19:36 01/25/24 19:37 Iopamidol-370 (76%);100ml Bottle IV 01/25/24 19:37 75 ml ONCE ONE Administration Morphine Sulfate 4 mg 01/25/24 18:33 01/25/24 18:49 Morphine 4mg/Ml Syringe IV 01/25/24 18:34 4 mg ONCE ONE Administration Morphine Sulfate 4 mg 01/25/24 20:27 01/25/24 20:47 Morphine 4mg/Ml Syringe IV 01/25/24 20:28 4 mg ONCE ONE Administration ORDERS Category Date Time Status CT hand RT w con Stat Cat Scan 01/25/24 18:33 Completed Consult Care Management Specialist [CONS] Routine Cons 01/25/24 19:11 Active Hand XR right minimum 3 views [XR hand RT min 3V] Stat Exams 01/25/24 18:25 Completed BMP [Basic Metabolic Panel] Stat Lab 01/25/24 18:46 Completed CBC w/Auto Diff [Complete Blood Count Auto Diff] Stat Lab 01/25/24 18:46 Completed CRP [C-Reactive Protein] Stat Lab 01/25/24 18:46 Completed ESR [Erythrocyte Sedimentation Rate] Stat Lab 01/25/24 18:46 Completed Procalcitonin Stat Lab 01/25/24 18:46 Completed VBG [Venous Blood Gas] Stat RT 01/25/24 19:44 Completed Medical Decision Narrative: Bismark Cai is a 58-year-old male with a past medical history of substance abuse presents to the emergency department for 1 day of increased pain and swelling to the right hand at the base of the pointer finger. Patient states that he first noticed it after working in his shop but denies any trauma to the area. He states that it is warm and hurts to move and appears swollen. He denies any IV drug use within the last 10 months but does state that he relapsed today on oral drugs. Patient denies any fevers. Differential diagnosis includes: Flexor tenosynovitis, extensor tenosynovitis, cellulitis, osteomyelitis, septic arthritis, fracture Patient's workup in the emergency department included: CBC, VBG, lactic acid, BMP, procalcitonin, right hand x-ray, right hand CT with IV contrast Workup was significant for leukocytosis with white blood cell count of 11.8, lactate normal at 1.4, BMP unremarkable nonactionable, procalcitonin elevated 2.84. X-ray and CT imaging were interpreted by me personally. X-ray demonstrated no fracture or dislocation. There is evidence of soft tissue swelling diffusely throughout the finger and dorsal of the hand. CT hand also interpreted by me personally demonstrated soft tissue swelling of the second finger and possible tenosynovitis. No abscesses or osteomyelitis. Patient being treated with 1500 mg of IV Dalvance. Patient received 4 mg IV morphine x 2 for pain. Patient meets 4 out of [address] imaging concerning for flexor tenosynovitis. Is felt that he warrants emergent orthopedic evaluation by hand specialist. Given this, will discuss patient's case with . After conversation with , patient was excepted to [facility] emergency department by Dr. Tinsley. Given the patient's hemodynamic stability, is felt that he is appropriate for transfer by personally owned vehicle. This was discussed with the patient he was amenable to this plan. Patient was then transferred to for further management. Critical Care Critical Care Time Critical Care Time: Yes Attestation: On 01/25/24, the high probability of a clinically significant, sudden or life threatening deterioration of the following system(s) required my full and direct attention, intervention and personal management. The time I documented below is in addition to time spent performing reported procedures but includes the following listed in this critical care notation. Total Time Total Critical Care Time: 30
--- NOTE | 2024-01-25 18:29 | PC.NURSE ---
DR WITT AT BEDSIDE
--- NOTE | 2024-01-25 18:33 | CT_ITS ---
PROCEDURE INFORMATION: Exam: CT Right Upper Extremity With Contrast, Hand Exam date and time: 01/25/2024 7:34 PM Age: 58 years old Clinical indication: Swelling; Hand; Right; Additional info: Swelling, pain, 2nd digit. Concern for infection TECHNIQUE: Imaging protocol: Computed tomography of the right upper extremity with contrast. Exam focused on the hand. Radiation optimization: All CT scans at this facility use at least one of these dose optimization techniques: automated exposure control; mA and/or kV adjustment per patient size (includes targeted exams where dose is matched to clinical indication); or iterative reconstruction. Contrast material: ISOVUE; Contrast volume: 75 ml; Contrast route: IV; COMPARISON: CR XR HAND RT MIN 3V 01/25/2024 6:24 PM FINDINGS: Bones/joints: No acute bony abnormality. Advanced degenerative changes of the 1st carpometacarpal joint. Soft tissues: Mild fairly diffuse soft tissue edema of the 2nd finger more pronounced dorsally noted. No evident abscess. No evident soft tissue air. IMPRESSION: Nonspecific soft tissue swelling of the 2nd finger that may reflect cellulitis or possibly tenosynovitis. No evident abscess. No CT evidence of acute osteomyelitis. If persistent symptoms consider MRI.
[2024-01-25] MEDS: MORPHINE 4MG/ML SYRINGE 4 MG IV ×2 (18:49→20:47)
--- NOTE | 2024-01-25 18:52 | PC.NURSE ---
RICHAG sent to lab and RT Tika was notified. She reports that they are assisting the MD with another patient, so it will be a bit before they get to it.
[2024-01-25 18:53] LABS: Basophils # 0.1 K/mm3 (0-0.2); Basophils % 0.7 % (0.1-2.0); Eosinophils # 0.2 K/mm3 (0.0-0.4); Eosinophils % 1.4 % (0.1-12.0); Hematocrit 41.3 % (42.0-52.0); Hemoglobin 14.5 g/dL (14.1-18.0); Lymphocytes # 1.8 K/mm3 (0.7-4.5); Mean Corpuscular HGB Conc 35.1 g/dL (31.8-35.4); Mean Corpuscular Hemoglobin 29.9 pg (27.0-31.2); Mean Corpuscular Volume 85.2 fl (80-94); Mean Platelet Volume 8.8 fl (7.4-10.4); Monocytes # 0.8 K/mm3 (0.1-1.0); Neutrophils % 75.8 % (37.0-80.0); Platelet Count 166 K/mm3 (142-424); Red Blood Count 4.84 M/mm3 (4.60-6.20); Red Cell Distribution Width 14.5 % (11.5-17.5); White Blood Count 11.8 K/mm3 (4.8-10.8)
[2024-01-25 19:03] LABS: Anion Gap 12.9 mEq/L (5-15); Blood Urea Nitrogen 28 mg/dl (9-20); Calcium 9.7 mg/dl (8.4-10.2); Carbon Dioxide 28 mmol/L (22.0-30.0); Chloride 104 mmol/L (98-107); Creatinine Clearance Estimated 89 mL/min (50-200); Estimated Glomerular Filt Rate 77 ml/min (>60); GFR (African American) 93 ML/MIN (>60); Glucose 125 mg/dl (74-100); Potassium 3.9 mmoL/L (3.5-5.1); Sodium 141 mmol/L (136-145)
[2024-01-25 19:21] LABS: Erythrocyte Sedimentation Rate 15 mm/hr (0-20)
[2024-01-25 19:22] LABS: Procalcitonin 2.84 ng/mL (0.0-2.0)
--- NOTE | 2024-01-25 19:33 | PC.NURSE ---
pt in CT at this time
[2024-01-25] MEDS: IOPAMIDOL-370 (76%);100ML BOTTLE 75 ML IV (19:37)
[2024-01-25] MEDS: SODIUM CHLORIDE 0.9% 10ML SYR (RAD ONLY) 10 ML IV (19:37)
--- NOTE | 2024-01-25 19:44 | PC.NURSE ---
VBG redrawn and given to RT at this time
[2024-01-25 19:48] LABS: Lactate Venous 1.4 mmol/L (0.4-2.0); VBG HCO3 26.5 mmol/L (23-30); VBG Oxygen Saturation 91.7 % (50-70); VBG PCO2 41.7 mmol/L (35-51); VBG PH 7.42 mmol/L (7.31-7.41); VBG PO2 58.6 mmol/L (28-40); VBG Total CO2 27.8 mmol/L (23-27)
--- NOTE | 2024-01-25 20:29 | PC.NURSE ---
Pt aware of plan to transfer to via private vehiicle
--- NOTE | 2024-01-25 20:37 | PC.NURSE ---
speaking with at this time
--- NOTE | 2024-01-25 20:58 | PC.NURSE ---
called back and said they still had not received the images. i called radiology and spoke with yeny and she said she would look into it for us.
[2024-01-25] MEDS: DALBAVANCIN HCL 1,500 MG in DEXTROSE 5 % IN WATER 250 ML 500 MG IV (21:11)
[2024-01-25 21:38] VITALS: BP 148/77; PULSE 115; RESP 16; TEMP 36.9
--- NOTE | 2024-01-25 21:40 | PC.NURSE ---
Pt sent via private car to ER Instructed to go straight to the ED IV d/c'd for travel
== END 2024-01-25 21:44 | disposition other institution (70) ==
PROVIDERS: Emergency Provider Student in an Organized Health Care Education/Training Program; PCP Nurse Practitioner Family
DX: M65.949 Unspecified synovitis and tenosynovitis, unspecified hand (principal); R22.31 Localized swelling, mass and lump, right upper limb; M79.641 Pain in right hand
CPT/HCPCS: 73130; 73201; 80048; 82803; 84145; 85025; 85651; 86140; 96365; 96374; 96375; 99291; J0875; J2270; J7060; Q9967

== ENCOUNTER 2024-07-29 09:03 | Outpatient (CLI) | payer OTHER, SELFPAY ==
[2024-07-29 15:48] LABS: Coronavirus 19, PCR Not Detected (NotDetected); Human Rhinovirus Not Detected (NotDetected); Influenza A, PCR Not Detected (NotDetected); Influenza B, PCR Not Detected (NotDetected); Respiratory Syncytial Virus Not Detected (NotDetected)
== END 2024-07-29 23:59 | disposition home or self-care (01) ==
LOC: LAB.DROPOF 22:16
PROVIDERS: PCP Nurse Practitioner; Visit Provider Nurse Practitioner
DX: R50.9 Fever, unspecified (principal)
CPT/HCPCS: 87631

== ENCOUNTER 2024-08-22 00:16 | Emergency (ER) | payer OTHER, SELFPAY ==
[2024-08-22 00:21] VITALS: BP 174/112; PULSE 86; RESP 18; TEMP 36.7; O2SAT 94; BMI 21.7
[2024-08-22 00:30] VITALS: BP 169/103; PULSE 85; RESP 16; O2SAT 95
[2024-08-22 01:00] VITALS: BP 166/103; PULSE 76; RESP 16; O2SAT 95
[2024-08-22 01:30] VITALS: BP 139/120; PULSE 85; RESP 16; O2SAT 98
[2024-08-22 01:52] VITALS: BP 139/120; PULSE 85; RESP 16; TEMP 36.9; O2SAT 98
--- OUTSIDE RECORDS SUMMARY | 2024-08-22 02:30 | XMS_ITS | Encounter Summary ---
Author Organization Healthcare Address [address] [place] [address] Care Team Providers Care Booking Prizer Name Role Phone BahmanGila Israel CARNES Primary Care Provider [phone] Sb Martinez Unavailable Unavailable Ashli Elliott Unavailable Unavailable Tatiana Olivo SOLAR MECHANICAL ENGINEER Unavailable Unavailable Encounter Details Date Type Department Care Team (Late st Contact Info) Description 08/22/2024 2:30 AM EDT Emergency [facility] [address] [place] [address] Social History Tobacco Use Types Packs/Day Years Used Date Smoking Tobacco: Every Day Cigarettes 1 30 Smokeless Tobacco: Never Alcohol Use Standard Drinks/Week Comments Never 0 (1 standard drink = 0.6 oz pur e alcohol) Humiliation, Afraid, Rape, and Kick questionnair e Answer Date Recorded Within the last year, have y ou been afraid of your partner or ex-partner? No 01/29/2024 Within the last year, have y ou been humiliated or emotionally abused in other ways by your partner or ex-partner? No Within the last year, have y ou been kicked, hit, slapped, or otherwise physically hurt by your partner or ex-partner? No 01/29/2024 Within the last year, have y ou been raped or forced to have any kind of sexual activity by your partner or ex-partner? No 01/29/2024 PHQ-2 Answer Date Recorded Patient Health Questionnaire-2 Score 4 12/19/2023 Hunger Vital Sign Answer Date Recorded Within the past 12 months, y ou worried that your food would run out before you got the money to buy more. Sometimes true Within the past 12 months, t he food you bought just didn't last and you didn't have money to get more. Sometimes true PRAPARE - Transportation Answer Date Re corded In the past 12 months, has l ack of transportation kept you from medical appointments or from getting medications? Yes 01/11 In the past 12 months, has l ack of transportation kept you from meetings, work, or from getting things needed for daily living? Yes 01/29/2024 Housing Stability Vital Sign Answer Teja e Recorded In the last 12 months, was t here a time when you were not able to pay the mortgage or rent on time? Yes 01/29/2024 Number of Times Moved in the Last Year Not on fi le 01/29/2024 At any time in the past 12 m [facility] [place], were you homeless or living in a long term (including now)? Yes 01/29/2024 Utilities Answer Date Recorded In the past 12 months has th e electric, gas, oil, or water company threatened to shut off services in your home? No 01/29/2024 Sex and Gender Information Value Date Recorded Sex Assigned at Male 01/08/2021 1:25 PM EDT Legal Sex Male 8:44 PM EDT Gender Identity Male 01/08/2021 1:25 PM EDT Sexual Orientation Straight 01/08/2021 1: 25 PM EDT documented as of this encounter Functional Status * Are you deaf or do you have serious difficulty hearing? Answer Date of Assessment Author No 03/04/2021 10:14 AM Selena Hill RN * Are you blind or do you have serious difficulty seeing, even when wearing glasses? Answer Date of Assessment Author No 03/04/2021 10:14 AM Selena Hill RN * Do you have serious difficulty walking or climbing stairs? Answer Date of Assessment Author No 03/04/2021 10:14 AM Selena Hill RN * Do you have serious difficulty dressing or bathing? Answer Date of Assessment Author No 03/04/2021 10:14 AM Selena Hill RN * Because of a physical, mental, or emotional condition, do you have serious difficulty doing errandsalone such as visiting the doctor? Answer Date of Assessment Author No 03/04/2021 10:14 AM Selena Hill RN documented as of this encounter Mental Status * Because of a physical, mental, or emotional condition, do you have serious difficulty concentrating, remembering, or making decisions? (5 years old or older) Answer Entry Date Author No 03/04/2021 10:14 AM Selena Hill RN documented in this encounter Plan of Treatment Not on file documented as of this encounter Visit Diagnoses Not on filedocumented in this encounter Additional Health Concerns Assessment Noted Time A fall risk assessment has been complete d for the patient 12/19/2023 2:21 PM EDT A Body Mass Index follow-up plan has been documented for the patient 02/15/2024 12:01 PM EST documented as of this encounter Care Teams Booking Prizer Relationship Specialty Start Date End Date Gila Ruggiero APRN [address] [place] [address] PCP - General 07/24/20 [place] [address] Front Of House Manager Molding Machine Operator Helper 04/19/21 Ashli Elliott Front Of House Manager Molding Machine Operator Helper 04/19/21 Tatiana Olivo, [place] [address] Front Of House Manager Molding Machine Operator Helper 01/04/21 documented as of this encounter
[2024-08-22 03:33] VITALS: BP 166/103; PULSE 76; RESP 16; O2SAT 96
--- NOTE | 2024-08-22 06:26 | HMH.EDGENADL ---
Discharge Plan Disposition Condition: Good Chief Complaint: Eye Problems Prescriptions Prescriptions: No Action buprenorphine-naloxone 8-2 mg tablet, sublingual 2 tab sublingual DAILY Patient Comments: DISSOLVE 2 TABLETS UNDER THE TONGUE ONCE DAILY IN THE MORNING polymyxin B sulf-trimethoprim 10,000 unit- 1 mg/mL drops 2 drp Eye-Both Q6H 7 Days Qty: 10 0RF Rx Instructions: both eyes while awake; do not exceed 6 doses in 24 hours Referrals Follow up/Referrals: Provider,Referral, MD [Primary Care Provider, Medical] - See instructions Activity Restrictions/Add. Instructions Additional Instructions/Restrictions: Please proceed directly to [facility] emergency department. Clinical Impressions Clinical Impression: Infection of left eye Print Language Print Language: Welsh Discharge ED Provider: Trenton Montenegro General Adult HPI General Chief complaint: Eye Problems Stated complaint: pain both eyes Time Seen by Provider: 08/22/24 00:21 Mode of Arrival: Ambulatory Source of Information: Patient Description of Symptoms (Recalled from ER Triage Doc. by RN): Pt presents with c/o pain and swelling to left eye that began approx 1700 yesterday with wrosening throughout the night. Pt reports pain has since began to the right eye as well. 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 Pt reports to using IV meth with last use x1 week away. History of Present Illness HPI narrative: 59-year-old male with history of IV methamphetamine use presents for eye pain. He reports pain in his left eye starting around 5 PM and worsening. Some pain in the right eye as well. Patient works under houses installing insulation and did that earlier today but as far as he no did not get anything in his eye. Reports last meth use a week ago. Denies history of fever or other symptoms. Reports decreased vision Related Data Home Medications ?Medication ?Instructions ?Recorded ?Confirmed buprenorphine 8 mg-naloxone 2 mg 2 tab sublingual DAILY 06/02/23 07/29/24 sublingual tablet Previous Rx's ?Medication ?Instructions ?Recorded polymyxin B sulfate 10,000 2 drp Eye-Both Q6H 7 days #10 mL 07/29/24 unit-trimethoprim 1 mg/mL eye drops Allergies Allergy/AdvReac Type Severity Reaction Status Date / Time No Known Allergies Allergy Verified 07/29/24 08:57 [facility] Disclaimer: The information contained in this section may have been updated after the patient was seen, as this information can be updated by other users. Medical History (Updated 08/22/24 @ 06:36 by Trenton Montenegro MD) Conjunctivitis Liver disease Depression Anxiety Migraine COPD (chronic obstructive pulmonary disease) Hypertension Surgical History S/P ORIF (open reduction internal fixation) fracture History of cholecystectomy Family History Family/Other No significant family history Social History Smoking Status: Current every day smoker tobacco type: cigarettes packs per day: 1 alcohol intake: never substance use type: former substance user, marijuana and heroin current occupational status: employed Travel in the last 8 weeks?: None caregiver/support person: No foster care: No lives independently: Yes service: No care home: No Hx Recent Travel: No Other Medical History Have you received the Flu Vaccine for this season: No Have you received the Pneumonia Vaccine: No ROS Obtained: Yes All systems reviewed & no additional complaints except as documented Physical Exam General General appearance: alert, anxious and in distress Head Head exam: atraumatic and normocephalic Eye Eye exam: Present other (Severe conjunctival injection in the left eye with linear fluorescein uptake in the inferior aspect of the cornea. There is a circular area of hazy fluorescein uptake in approximately 5 o'clock position.) ENT ENT exam: Present normal oropharynx and normal external ear exam Neck Neck exam: Present normal inspection and full ROM Chest Chest inspection: Present normal inspection and symmetric chest wall rise; Absent tenderness Respiratory Respiratory exam: Present normal lung sounds bilaterally; Absent respiratory distress Cardiovascular Cardiovascular exam: Present regular rate and normal rhythm Abdominal Exam Abdominal exam: Present soft; Absent distention, tenderness or guarding Extremities Exam Extremities exam: Present normal inspection; Absent edema or joint swelling Back Exam Back exam: Present normal inspection; Absent tenderness Neurological Exam Neurological exam: Present alert and oriented X3; Absent motor sensory deficit Psychiatric Psychiatric exam: Present normal affect and normal mood Skin Skin exam: Present warm, dry and normal color Lymphatic Lymphatic Findings: no adenopathy Medical Decision Making Medical Records Medical records reviewed: Yes I reviewed the patient's medical records. Screening: Per USPSTF and CDC recommendations, given the prevalence of disease in our region, it is our hospital?s policy to screen for HIV and viral Hepatitis for all patients aged 18 and over and those with ongoing risk factors. Talon Inquiry Pt receiving controlled substance: No Talon was queried for this patient: No Vital Signs: 08/22/24 00:21 08/22/24 00:30 08/22/24 01:00 Temperature 98.1 F Temperature Source Oral Pulse Rate 85 76 Pulse Rate [Radial] 86 Respiratory Rate 18 16 16 Blood Pressure 169/103 H 166/103 H Blood Pressure [Right Arm] 174/112 H Blood Pressure Mean [Right Arm] 132 Blood Pressure Position [Right Arm] Sitting 02 Sat by Pulse Oximetry 94 L 95 95 Oxygen Delivery Method Room Air Room Air Room Air 08/22/24 01:30 08/22/24 01:52 08/22/24 03:33 Temperature 98.5 F Temperature Source Pulse Rate 85 85 76 Pulse Rate [Radial] Respiratory Rate 16 16 16 Blood Pressure 139/120 H 139/120 H 166/103 H Blood Pressure [Right Arm] Blood Pressure Mean [Right Arm] Blood Pressure Position [Right Arm] 02 Sat by Pulse Oximetry 98 96 Oxygen Delivery Method Room Air Room Air Room Air Lab Data Lab results reviewed: Yes I reviewed the patient's lab results. Medical Decision Narrative: 59-year-old male with history of IV meth use presents for worsening left eye pain and vision changes. History was obtained via interactive discussion with patient. On arrival, patient is [afebrile, hemodynamically stable, satting appropriately, alert, oriented x4, GCS 15], moving all extremities spontaneously. Full physical exam performed and significant for severe conjunctival injection in the left eye with linear fluorescein uptake, hazy circular area of fluorescein uptake at the 4 o'clock position. There is some conjunctival injection of the right eye with no foreseen uptake. Pressures are 12 and 13 in the eyes. Patient has 20/30 vision in the right eye, reports she is unable to see out of the left eye. Differential includes but is not limited to eye foreign body, endophthalmitis, corneal abrasion, glaucoma. Patient was given tetracaine drops, fluorescein staining, erythromycin ointment for symptomatic management and correction of underlying abnormalities. Given patient history, exam and workup, patient's presentation most likely represents an infection of the left eye. I attempted to scrape/remove the circular area that I thought looked like a foreign body in the left eye with a Q-tip and with irrigation. It did not move. I scraped with a 25-gauge needle and there was what appeared to be purulence underneath concerning for corneal ulcer/infection. I called and spoke with [facility] who was agreeable for transfer to the [facility] for further assessment. Procedures Risk/Benefits of Procedure(s) Were Explained: Yes Critical Care Critical Care Time Critical Care Time: No
--- OUTSIDE RECORDS SUMMARY | 2024-08-22 07:36 | XMS_ITS | Clinical Summary ---
Author Organization [facility] [employer] Address [address] [place] [address] Care Team Providers Care Central Station Operator Name Role Phone Gila Ruggiero APRN Primary Care Provider Allergies No known active allergies Medications naloxone (NARCAN) 4 mg/actuation [place] SMARTSIG:Bot h Nares 01/09/2023 Active ondansetron (ZOFRAN) 8 MG tablet Take by mouth. 01/09/2023 Active traZODone (DESYREL) 50 MG tablet Take 2 tablets (100 mg total) by mouth every night as needed. 01/09/2023 Active melatonin 5 mg tablet Take 1 tablet (5 mg total) by mouth nightly. 01/09/2023 Active cloNIDine HCL (CATAPRES) 0.1 MG tablet Take by mouth. 01/09/2023 Active baclofen (LIORESAL) 10 MG tablet Take by mouth. 01/09/2023 Active Social History Tobacco Use Types Packs/Day Years Used Date Smoking Tobacco: Every Day Cigarettes Smokeless Tobacco: Never Tobacco Cessation:Ready to Q uit: Not Asked; Counseling Given: Not Answered Alcohol Use Standard Drinks/Week Comments Never 0 (1 standard drink = 0.6 oz pur e alcohol) Interpersonal Safety Answer Date Record ed Family or friends hurt you Not on file 03/25 Family or friends insult you Not on file Family or friends threaten you Not on file 0 03/25/2023 Family or friends scream or curse at you Not on file 03/25/2023 Housing Stability Answer Date Recorded Living situation today Not on file Living situation problems Not on file 2023 Food Insecurity Answer Date Recorded Food run out past 12 months Not on file 03/13 Food did not last past 12 months Not on file 03/25/2023 Employment Answer Date Recorded Help finding and keeping a job Not on file 0 03/25/2023 Family and Community Support Answer Teja e Recorded Help with Day to Day Activities Not on file 03/25/2023 Feeling Lonely or Isolated Not on file 03/25 Educational Attainment Answer Date Hank rded Speak language other than Bengali at home Not on file 03/25/2023 Want help with school or training Not on file 03/25/2023 Depression Answer Date Recorded PHQ-2 Risk Not on file 03/25/2023 Disabilities Answer Date Recorded Difficulty concentrating Not on file 024 Difficulty doing errands alone Not on file 0 03/25/2023 Substance Use Answer Date Recorded Used prescription meds for non-medical reasons N ot on file 03/25/2023 Used illegal drugs past 12 months Not on file 03/25/2023 Sex and Gender Information Value Date Recorded Sex Assigned at Not on file Legal Sex Male 4:23 PM CDT Gender Identity Not on file Sexual Orientation Not on file Last Filed Vital Signs Vital Sign Reading Time Taken Comments Blood Pressure 136/91 01/10/2023 10:20 PM EDT Pulse 91 01/10/2023 10:20 PM EDT Temperature 36.7 C (98.1 F) 01/10/2023 10:20 PM EDT Respiratory Rate 18 01/10/2023 10:20 PM EDT Oxygen Saturation 94% 01/10/2023 10:50 PM EDT Inhaled Oxygen Concentration - - Weight 66.7 kg (147 lb) 01/10/2023 10:20 PM EDT Height 185.4 cm (6' 1 ) 01/10/2023 10:20 PM EDT Body Mass Index 19.39 01/10/2023 10:20 PM EDT Plan of Treatment Health Maintenance Due Date Last Done Comments CT Colonography 1966 Colonoscopy 1966 Colorectal Cancer Screening 1966 FOBT/FIT 1966 Fit-DNA (Cologuard) 1966 Sigmoidoscopy 1966 Depression Screening (12+) 1978 HIV Screening 1981 Hepatitis C Screening 1984 DTAP/TDAP/TD VACCINES (1 - Tdap) 1985 Pneumococcal 50+ years (1 of 2 - PCV) 1985 Lipid Panel 2001 Shingles Vaccine (Zoster) (1 of 2) 2016 COVID-19 VACCINE (1 - 2023- season) 2023 Tobacco Cessation Counseling and Screening (12+) 01/1001/10/2023 Influenza Vaccine (Season Ended) 2024 Insurance [facility] [facility] Care Teams Central Station Operator Relationship Specialty Start Date End Date Gila Ruggiero APRN [address] [address] PCP - General Nurse Practitioner 01/10/23
--- OUTSIDE RECORDS SUMMARY | 2024-08-22 07:36 | XMS_ITS | Referral Summary ---
Author Organization [facility] [employer] Address [address] [place] [address] Care Team Providers Care Field Health Officer Name Role Phone Gila Ruggiero APRN Primary Care Provider Allergies No known active allergies Medications naloxone (NARCAN) 4 mg/actuation [place] SMARTSIG:Bot h Nares 01/09/2023 Active ondansetron (ZOFRAN) [...] Date Hank rded Speak language other than Maori at home Not on file 03/25/2023 Want [...] 01/10/2023 10:20 PM EDT Plan of Treatment Not on file Insurance [employer] [facility] Care Teams Field Health Officer Relationship Specialty Start Date End Date Gila Ruggiero, ADJUNCT PROFESSOR [address] [place] [address] PCP - General Nurse Practitioner 01/10/23
--- OUTSIDE RECORDS SUMMARY | 2024-08-22 07:36 | XMS_ITS | Encounter Summary ---
Author Organization Healthcare Address [address] [place] [address] Care Team Providers Care Military Cook Name Role Phone Gila Ruggiero BAR WELDER Primary Care Provider +1- [phone] Sb Martinez Unavailable Unavailable Ashli Elliott Unavailable Unavailable Carrol Shields LPN Unavailable UnavailYumiko Forrest Unavailable Unavailable Tatiana Olivo LCSW Unavailable Unavailable Encounter Details Date Type Department Care Team (Late st Contact Info) Description 09/15/2020 Ophth Exam [facility] [address] [place] [phone] Vivek Medina MD Social History Tobacco Use Types Packs/Day Years Used Date Smoking Tobacco: Every Day Cigarettes Smokeless Tobacco: Never Alcohol Use Standard Drinks/Week Comments Never 0 (1 standard drink = 0.6 oz pur e alcohol) Sex and Gender Information Value Date Recorded Sex Assigned at Male 01/08/2021 1:25 PM EDT Legal Sex Male 8:44 PM EDT Gender Identity Male 01/08/2021 1:25 PM EDT Sexual Orientation Straight 01/08/2021 1: 25 PM EDT COVID-19 Exposure Response Date Recorded In the last month, have you been in contact with someone who was confirmed or suspected to have Coronavirus / COVID-19? No / Unsure 09/14/2020 7:50 PM EDT documented as of this encounter Plan of Treatment Not on file documented as of this encounter Visit Diagnoses Not on filedocumented in this encounter Additional Health Concerns Infection Onset Date Last Indicated Resolved Time COVID 19 (Confirmed) Comment:[facility] has verified patient has a COVID-19 positive result. A chart review has been completed, EPI PUI has been completed and sent to appropriate Health Dept. [facility] Greens Keeper: Meliza Moncada 04/08/2021 04/08/202104/29 5:23 AM EST documented as of this encounter Care Teams Military Cook Relationship Specialty Start Date End Date Gila Ruggiero, TRICE [address] [place] [address] PCP - General 07/24/20 [place] [address] Sales And Leasing Agent Baseball Inspector 04/19/21 Ashli Elliott Sales And Leasing Agent Baseball Inspector 04/19/21 Carrol Shields, COFFEE BLENDER [facility] Nurse Internal Medicine 02/02/24 03/03/24 Yumiko Perez Community Health Worker 02/02/24 02/07/24 Tatiana Olivo, [place] [address] Sales And Leasing Agent Baseball Inspector 01/04/21 documented as of this encounter
--- OUTSIDE RECORDS SUMMARY | 2024-08-22 07:36 | XMS_ITS | Encounter Summary ---
Author Organization Healthcare Address [address] [place] [address] Care Team Providers Care Practice Billing Associate Name Role Phone Gila Ruggiero TRICE Primary Care Provider +1- [phone] Sb Martinez Unavailable Unavailable Ashli Elliott Unavailable Unavailable Carrol Shields LPN Unavailable UnavailYumiko Forrest Unavailable Unavailable Tatiana Olivo LCSW Unavailable Unavailable Reason for Referral * Consultation (Routine) - Authorized Specialty Diagnoses / Procedures Referred By Jeet cordero Referred To Contact Orthopaedic Surgery Diagnoses Other secondary osteoarthritis of right knee Noel Cazares DO [address] [place] [address] Phone: tel: fax: Medical Office Building [facility] [address] [facility], [address] [place] [address] Phone: tel: fax: Referral ID Status Reason Start Date Expiration Date V isits Requested Visits Authorized [id number] Authorized 07/04/2023 01/02/2025 1 1 Encounter Details Date Type Department Care Team (Latest Contact Info) Description 07/04/2023 Community [facility] [address] [place] [phone] Noel Cazares DO [address] [place] [address] Other secondary osteoarthritis of right knee (Primary Dx) Social History Tobacco Use Types Packs/Day Years [...] documented in this encounter Plan of Treatment Scheduled Referrals Name Type Priority Associated Diagnoses Orde r Schedule Ambulatory referral to Orthopaedics Joint [facility]construction Outpatient Referral Routine Other secondary osteoarthritis of right knee Expected: 07/04/2023 (Approximate), Expires: 01/02/2025 documented as of this encounter Visit Diagnoses Diagnosis Other secondary osteoarthritis of right knee- Primary documented in this encounter Additional Health Concerns Assessment Noted Time A fall risk assessment has been complete d for the patient 04/29/2021 10:21 AM EST documented as of this encounter Care Teams Practice Billing Associate Relationship Specialty Start Date End Date Gila Ruggiero APRN [address] [place] [address] PCP - General 07/24/20 [place] [address] Software Programmer Sustainability Officer 04/19/21 Ashli Elliott Software Programmer Sustainability Officer 04/19/21 Carrol Shields, CATTLE DEALER [facility] Nurse Internal Medicine 02/02/24 03/03/24 Yumiko Perez Community Health Worker 02/02/24 02/07/24 Tatiana Olivo, [place] [id number] Software Programmer Sustainability Officer 01/04/21 documented as of this encounter
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
--- OUTSIDE RECORDS SUMMARY | 2024-08-22 07:36 | XMS_ITS | Encounter Summary ---
Author Organization Healthcare Address [address] [place] [address] Care Team Providers Care Associate Director Career Services Name Role Phone Gila Ruggiero MERCHANDISE WORKER Primary Care Provider +1- [phone] Sb Martinez Unavailable Unavailable Ashli Elliott Unavailable Unavailable Carrol Shields LPN Unavailable UnavailYumiko Forrest Unavailable Unavailable Tatiana Olivo LCSW Unavailable Unavailable Encounter Details Date Type Department Care Team (Late st Contact Info) Description 09/15/2020 Ophth Exam [facility] [address] [place] [phone] Tiffani Clarke MD Social History Tobacco Use Types Packs/Day [...] Last Indicated Resolved Time COVID 19 (Confirmed) Comment:[facility] has verified patient has a COVID-19 positive result. A chart review has been completed, EPI PUI has been completed and sent to appropriate Health Dept. [facility] Stable Cleaner: Meliza Moncada 04/08/2021 04/08/202104/29 5:23 AM EST documented as of this encounter Care Teams Associate Director Career Services Relationship Specialty Start Date End Date Gila Ruggiero, TRICE [address] [place] [address] PCP - General 07/24/20 [place] [address] Shuttleless Loom Weaver Slot Tag Inserter 04/19/21 Ashli Elliott Shuttleless Loom Weaver Slot Tag Inserter 04/19/21 Carrol Shields, ARBOREAL SCIENTIST [facility] Nurse Internal Medicine 02/02/24 03/03/24 Yumiko Perez Community Health Worker 02/02/24 02/07/24 Tatiana Olivo, [place] [id number] Shuttleless Loom Weaver Slot Tag Inserter 01/04/21 documented as of this encounter
--- OUTSIDE RECORDS SUMMARY | 2024-08-22 07:36 | XMS_ITS ---
Author Organization [facility] Address [address] [place] [id number] Care Team Providers Care Molded Candles Wicker Name Role Phone Gila Ruggiero APRN Primary Care Provider +1- [phone] Sb Martinez Unavailable Unavailable Ashli Elliott Unavailable Unavailable Tatiana Olivo LCSW Unavailable Unavailable Hepatitis C Program Status:Active (Active) Start date:01/04/2021 Enrollment date:01/04/2021 Enrollment reason:HCV Continued Care and Services Coordination
--- OUTSIDE RECORDS SUMMARY | 2024-08-22 07:36 | XMS_ITS | Clinical Summary ---
Author Organization Healthcare Address [address] [place] [address] Care Team Providers Care Assistant To The Director Name Role Phone Gila Ruggiero Israel CARNES Primary Care Provider +1- [phone] Sb Martinez Unavailable Unavailable Ashli Elliott Unavailable Unavailable Tatiana Olivo PACKING LINE WORKER Unavailable Unavailable Allergies No known active allergies Medications hydrOXYzine HCl (Atarax) 25 MG tablet Take 1 tablet (25 mg) by mouth every night. Active nicotine (Nicoderm CQ) 21 MG/24HR patch Place 1 patch on the skin 1 (one) time each day for 36 doses. 30 patch 4 Active Additional Information Patient not taking.Reported on 02/15/2024 propranolol (Inderal) 10 MG tablet Take 1 tablet (10 mg) by mouth 3 (three) times a day if needed (Anxiety). 30 tablet 4 Active Brixadi, Weekly, 32 MG/0.64ML injection Inject 1 syringe subcutaneously once a week 4 Active lamoTRIgine (LaMICtal) 25 MG tablet TAKE ONE TABLET BY MOUTH EVERY DAY FOR 2 WEEKS, THEN INCREASE TO TWO TABLETS EVERY DAY IF YOU DEVELOP A RASH, STOP THE MEDICATION AND CALL THE CLINIC 4 Active OLANZapine (ZyPREXA) 10 MG tablet Take 1 tablet (10 mg) by mouth 1 (one) time each day. 4 Active ibuprofen 200 MG tablet Take 1 tablet (200 mg) by mouth 1 (one) time each day if needed for mild pain. Active Active Problems Problem Noted Date Diagnosed Date Sepsis due to cellulitis 01/27/2024 Tobacco use disorder 01/27/2024 Sepsis 01/27/2024 Hypomagnesemia 04/13/2021 Knee effusion, right 04/09/2021 Anemia 02/10/2021 Transaminitis 02/10/2021 Moderate protein-calorie malnutrition 01/14/2021 Hypothyroidism 01/04/2021 Septic arthritis of knee, right 01/03/2021 Pain and swelling of right knee 01/03/2021 Overview (01/29/2021): Added automatically from request for surgery [id number] Graves disease 09/16/2020 Diplopia 09/15/2020 Tobacco use disorder, continuous 05/26/2017 Thrombocytopenia 05/26/2017 Opioid use disorder, severe, dependence 05/23/19 Essential hypertension 05/22/2017 Cannabis abuse with physiological dependence 02/2018 Substance induced mood disorder 05/22/2017 Resolved Problems Problem Noted Date Diagnosed Date Resolved Date Respiratory failure with hypoxia 04/14/2021 04/17/2021 Sequestrum of bone 04/08/2021 Overview (04/11/2021): Added automatically from request for surgery [id number] Chronic hepatitis C without hepatic coma 09/16/2020 04/17/2021 Encounters Date Type Department Care Team Description 08/22/2024 2:30 AM EDT Emergency [facility] Emergency Department [address] [place] [address] from Last 3 Months Family History Medical History Relation Name Comments Alcohol abuse Father Hypertension Mother Drug abuse Son Relation Name Status Comments Father Mother Son Social History Tobacco Use Types Packs/Day Years Used Date Smoking Tobacco: Every Day Cigarettes 1 30 Smokeless Tobacco: Never Tobacco Cessation:Ready to Q [...] any time in the past 12 m [facility], were you homeless or living in a penitentiary (including now)? Yes 01/29/2024 Utilities Answer Date [...] Orientation Straight 01/08/2021 1: 25 PM EDT Last Filed Vital Signs Vital Sign Reading Time Taken Comments Blood Pressure 136/89 02/15/2024 11:12 AM EST Pulse 89 02/15/2024 11:02 AM EST Temperature 36.5 C (97.7 F) 02/15/2024 11:02 AM EST Respiratory Rate 18 02/15/2024 11:02 AM EST Oxygen Saturation 95% 02/15/2024 11:02 AM EST Inhaled Oxygen Concentration - - Weight 75.5 kg (166 lb 7.2 oz) 02/15/2024 11:02 AM EST Height 185.4 cm (6' 1 ) 01/27/2024 8:00 PM EST Body Mass Index 21.96 01/27/2024 8:00 PM EST Plan of Treatment Health Maintenance Due Date Last Done Comments [facility]-Infant/Child/Adol SDOH Screenings 1966 [facility]-DTaP,Tdap,and Td Vaccines (1 - Tdap) 1985 [facility]-Hepatitis B Vaccines (1 of 3 - 19+ 3-dose series) 1985 [facility]-Pneumococcal Vaccine: 50+ Years (1 of 2 - PCV) 1985 CT Colonography 07/29/2011 Colonoscopy 07/29/2011 FIT-DNA 07/29/2011 FIT 07/29/2011 FOBT 07/29/2011 Sigmoidoscopy 07/29/2011 [facility]-Colorectal Cancer Screening 07/29/2011 [facility]-Zoster Vaccines (1 of 2) 2016 [facility]-Lung Cancer Screening 05/27/2018 05/27/2017 [id number] Vaccine ( - season) 2023 [facility]- SDOH Screenings 2024 [facility]-Adult SDOH Screenings 2024 01/29/2024 [facility]-Influenza Vaccine (Season Ended) 2024 [facility]-Depression Screening 12/18/2024 12/19/2023 [facility]-HIV Screening Completed 01/28/2024, , 01/10/2023, Additional history exists [facility]-Hepatitis C Screening Completed 2023, 01/10/2023, 04/09/2021, Additional history exists HPV Vaccines Aged Out No longer eligi ble based on patient's age to complete this topic [facility]-HIB Vaccines Aged Out No longer e ligible based on patient's age to complete this topic [facility]-Hepatitis A Vaccines Aged Out No longer eligible based on patient's age to complete this topic [facility]-IPV Vaccines Aged Out No longer e ligible based on patient's age to complete this topic [facility]-Rotavirus Vaccines Aged Out No lo nger eligible based on patient's age to complete this topic Medical Devices Implanted Type Area Flash Developer Device Identifier Shelf Expiration Date Model / Serial / Lot Pellets, 2 Bead 25cc - [id number] Implanted:Qty: 1 on 04/12/2021 by Douglas Caballero MD at [facility] Implant Right: Tibia Carter-Waters-[id number] 02/08/2029 [id number] / / [id number] Dbm Putty Synthe[employer]ure 10cc - [id number] Implanted:Qty: 1 on 01/15/2021 by Douglas Caballero MD at [facility]-[id number] 02/19/2024 [id number] / / Procedures Procedure Name Priority Date/Time Associated Diagnosis Comments ACUTE HEPATITIS PANEL Routine 01/28/2024 3:13 AM EST HIV 1/2 ANTIBODY/ANTIGEN SCREEN WITH REFLEX TO HIV I/II DIFFERENTIATION Routine 01/28/2024 3:13 AM EST from Last 3 Months or Most Recently Relevant to Health Maintenance Results * HIV 1 & 2 Antibody/Antigen Screen (01/28/2024 3:13 AM EST) HIV 1 & 2 Antibody/Antigen Screen Non Reactive Non Reactive 01/28/2024 4:19 AM EST [facility] Comment:Screening for HIV 1 & 2 antibodies, and P24 antigen is NONREACTIVE. No confirmatory testing is required. Blood Venous blood specimen / Unknown Venipuncture / Unknown 01/28/2024 3:13 AM EST 01/28/2024 3:38 AM EST us Rocael Hinojosa TELEVISION NEWSCAST DIRECTOR LAB BLOOD ORDERABLES Final Result [facility] [address] [place] [address] * Hepatitis panel, acute (01/28/2024 3:13 AM EST) Hepatitis B Surf Antigen Negative Negative 01/28/2024 5:15 AM EST [facility] Hepatitis A Antibody IgM Negative Negative 01/28/2024 5:15 AM EST [facility] Hepatitis B Core Antibody IgM Negative Negative 01/28/2024 5:15 AM EST [facility] Blood Venous blood specimen / Unknown Venipuncture / Unknown 01/28/2024 3:13 AM EST 01/28/2024 3:38 AM EST Narrative [facility] - 01/28/2024 5:15 AM EST Hepatitis C Antibody previously reported Positive on patient and will not be repeated on this panel. Patient is expected to test positive for Hepatitis C Antibody for the rest of their life. See previous results below: Hepatitis C Antibody Date Value Ref Range Status 01/10/2023 Positive (A) Negative Final TerraZelda Mixon Ashish TELEVISION NEWSCAST DIRECTOR LAB BLOOD ORDERABLES Final Result [facility] [address] [place] [address] from Last 3 Months or Most Recently Relevant to Health Maintenance [facility] Advance Directives * Full Code (Latest Code Status on File) Date Activated Date Inactivated Comments 01/27/2024 4:43 PM 02/01/2024 4:15 PM Question Answer Comments Patient has decision-making capacity? Yes * Full Code Date Activated Date Inactivated Comments 04/09/2021 9:06 AM 04/17/2021 5:28 PM Question Answer Comments Patient has decision-making capacity? Yes * Full Code Date Activated Date Inactivated Comments 02/11/2021 3:35 PM 03/04/2021 3:16 PM Question Answer Comments Patient has decision-making capacity? Yes * Full Code Date Activated Date Inactivated Comments 01/31/2021 9:13 AM 02/11/2021 3:35 PM Question Answer Comments Patient has decision-making capacity? Yes * Full Code Date Activated Date Inactivated Comments 01/03/2021 11:22 PM 01/31/2021 9:13 AM Question Answer Comments Patient has decision-making capacity? Yes Care Teams Assistant To The Director Relationship Specialty Start Date End Date Gila Ruggiero APRN [address] [place] [address] PCP - General 07/24/20 [place] [address] Abrasive Coating Machine Operator Transmitter Chief 04/19/21 Ashli Elliott Abrasive Coating Machine Operator Transmitter Chief 04/19/21 Tatiana Olivo, [place] [address] Abrasive Coating Machine Operator Transmitter Chief 01/04/21
--- OUTSIDE RECORDS SUMMARY | 2024-08-22 07:36 | XMS_ITS | Encounter Summary ---
Author Organization Healthcare Address [address] [place] [address] Care Team Providers Care Combination Man Name Role Phone Gila Ruggiero PHYSICAL DESIGN ENGINEER Primary Care Provider +1- [phone] Sb Martinez Unavailable Unavailable Ashli Elliott Unavailable Unavailable Carrol Shields LPN Unavailable UnavailYumiko Forrest Unavailable Unavailable Tatiana Olivo LCSW Unavailable Unavailable Encounter Details Date Type Department Care Team (Late st Contact Info) Description 02/14/2021 Ophth Exam [facility] [address] [place] [id number] Fredy Mullen MD [address] [place] [id number] Social History Tobacco Use Types Packs/Day Years Used Date Smoking Tobacco: Every Day Cigarettes 1.5 30 Smokeless Tobacco: Never Alcohol Use Standard [...] have Coronavirus / COVID-19? No / Unsure 01/29/2021 2:45 PM EST documented as of this encounter Functional Status * Calculated C-SSRS Risk Score (Lifetime/Recent) Answer Date of Assessment Author No Risk Indicated 02/15/2021 11:00 PM EST Barak Ramos RN * Question Answer Date of Assessment Author 1. Wish to be (Past 1 Month) No 021 11:00 PM EST Rosa Ramos RN 2. Non-Specific Active Suici kailey Thoughts (Past 1 Month) No 02/15/2021 11:00 PM Rosa Lewis RN 6. Suicidal Behavior (Lifetime) No 11:00 PM EST Rosa Ramos RN documented as of this encounter Plan of Treatment Not on file documented as of this encounter Visit Diagnoses Not on filedocumented in this encounter Additional Health Concerns Infection Onset Date Last Indicated Resolved Time COVID 19 (Confirmed) Comment:[facility] has verified patient has a COVID-19 positive result. A chart review has been completed, EPI PUI has been completed and sent to appropriate Health Dept. [facility] Virtual Reality Specialist: Meliza Moncada 04/08/2021 04/08/202104/29 5:23 AM EST documented as of this encounter Care Teams Combination Man Relationship Specialty Start Date End Date Gila Ruggiero APRN [address] [place] [address] PCP - General 07/24/20 [place] [address] Ammonia Nitrate Operator Drum Filler 04/19/21 Ashli Elliott Ammonia Nitrate Operator Drum Filler 04/19/21 Carrol Shields LPN [facility] Nurse Internal Medicine 02/02/24 03/03/24 Yumiko Perez Community Health Worker 02/02/24 02/07/24 [place] [address] Ammonia Nitrate Operator Drum Filler 01/04/21 documented as of this encounter
== END 2024-08-22 01:52 | disposition short-term general hospital (02) ==
LOC: ER 00:31
PROVIDERS: Emergency Provider Emergency Medicine
DX: H44.002 Unspecified purulent endophthalmitis, left eye (principal); H57.13 Ocular pain, bilateral
CPT/HCPCS: 99285